=== PATIENT | female | born 1955 | race Caucasian/White ===

== ENCOUNTER 2016-07-04 18:11 | Observation (INO) | payer BC, MEDICARE ==
[2016-07-04 19:57] LABS: HEMATOCRIT 29.3 % (36.0-47.0); HEMOGLOBIN 9.6 g/dL (12.0-15.5); HGB HCT DIFFERENCE -0.5; MEAN CORPUSCULAR HEMOGLOBIN 24.8 pg (27.0-33.4); MEAN CORPUSCULAR HGB CONC 32.7 g/dL (32.0-36.0); MEAN CORPUSCULAR VOLUME 76 fl (80-97); RED BLOOD COUNT 3.86 10^6/uL (3.72-5.28); RED CELL DISTRIBUTION WIDTH 16.6 % (11.5-14.0); WHITE BLOOD COUNT 5.5 10^3/uL (4.0-10.5)
[2016-07-04] MEDS: HYDROMORPHONE HCL INJ/PF 2 MG/ML AMPULE IV PRN (20:14)
[2016-07-04 20:22] LABS: ALANINE AMINOTRANSFERASE 26 U/L (9-52); ALKALINE PHOSPHATASE 71 U/L (38-126); ANION GAP 6 (5-19); ASPARTATE AMINO TRANSFERASE 23 U/L (14-36); BILIRUBIN,TOTAL 0.4 mg/dL (0.2-1.3); BLOOD UREA NITROGEN 9 mg/dL (7-20); CALCIUM 8.7 mg/dL (8.4-10.2); CARBON DIOXIDE 29 mmol/L (22-30); CHLORIDE 102 mmol/L (98-107); CREATININE RESULT 0.81 mg/dL (0.52-1.25); GLUCOSE 99 mg/dL (75-110); POTASSIUM 3.2 mmol/L (3.6-5.0); SODIUM 136.9 mmol/L (137-145); TOTAL PROTEIN 6.1 g/dL (6.3-8.2)
[2016-07-04] MEDS ORDERED: INFLUENZA ADLT QUAD (36MOS+) 2016-17 VAC 0.5 ML SYR IM PRN (20:48)
[2016-07-04 21:09] LABS: APPEARANCE,URINE CLEAR; BILIRUBIN,URINE NEGATIVE (NEGATIVE); GLUCOSE, URINE NEGATIVE (NEGATIVE); KETONES,URINE NEGATIVE (NEGATIVE); LEUKOCYTE ESTERASE,URINE NEGATIVE (NEGATIVE); NITRITE,URINE NEGATIVE (NEGATIVE); PROTEIN,URINE NEGATIVE (NEGATIVE); URINE SPECIFIC GRAVITY 1.003; UROBILINOGEN,URINE NEGATIVE mg/dL (<2.0)
[2016-07-04] MEDS ORDERED: LORAZEPAM INJ 2 MG/1 ML VIAL ONE (21:57)
[2016-07-04] MEDS ORDERED: LORAZEPAM INJ 2 MG/1 ML VIAL IV ONE (22:00)
[2016-07-05] MEDS: HYDROMORPHONE HCL INJ/PF 2 MG/ML AMPULE IV PRN ×4 (00:14→22:30)
[2016-07-05] MEDS ORDERED: LORAZEPAM INJ 2 MG/1 ML VIAL IV PRN (13:15)
[2016-07-05] MEDS ORDERED: METHADONE HCL 10 MG TABLET PO PRN (14:10)
[2016-07-05] MEDS ORDERED: (PENDING PHARMACY ID) (Losartan/Hydrochlorothiazide [Hyzaar 100-25 Tablet] 1 EACH) PO SCH (14:15)
[2016-07-05] MEDS ORDERED: POTASSIUM CHLORIDE 10 MEQ TABLET.SA PO ONE (15:00)
[2016-07-05] MEDS ORDERED: ESCITALOPRAM OXALATE 10 MG TABLET PO ONE (15:15)
[2016-07-05] MEDS ORDERED: HYDROCHLOROTHIAZIDE 25 MG TABLET PO ONE (15:15)
[2016-07-05] MEDS ORDERED: LANSOPRAZOLE 30 MG TAB.RAP.DR PO ONE (15:15)
[2016-07-05] MEDS ORDERED: LOSARTAN POTASSIUM 50 MG TABLET PO ONE (15:15)
--- NOTE | 2016-07-05 17:02 | PDOC H&P ---
History of Present Illness Admission Date/PCP: 07/04/16 18:11 CHRISTY JONES MD History of Present Illness: SUDHIR ROBERTSON is a 61 year old female, she came to the office because of symptoms of cervical and lumbar radiculopathy. She has symptoms of numbness, tingling and loss of strength of the upper extremities, more so on the right side. She has history of cervical spine disease,She is status post disc laminectomies. MRI of the cervical spine was done it showed mild cord compression at C3-C4 and C5-C6. MRI of the lumbar spine was done it showed moderate to severe spinal stenosis at L4-L5 Past Medical History Cardiac Medical History: Reports: Myocardial Infarction, Hyperlipidema, Hypertension Pulmonary Medical History: Reports: Asthma, Bronchitis, Pneumonia Musculoskeltal Medical History: Reports: Arthritis Psychiatric Medical History: Reports: Depression Past Surgical History Past Surgical History: Reports: Appendectomy, Gastric Bypass Surgery, Mastectomy , Orthopedic Surgery - cervical laminectomy, Tonsillectomy Social History Smoking Status: Never Smoker Frequency of Alcohol Use: Occasional Hx Recreational Drug Use: No Drugs: None Hx Prescription Drug Abuse: No Family History Family History: Reviewed & Not Pertinent, Malignancy - Mother had breast cancer and is from the disease Parental Family History Reviewed: Yes Children Family History Reviewed: Yes Sibling(s) Family History Reviewed.: Yes Medication/Allergy Home Medications: Atorvastatin Calcium [Lipitor 10 mg Tablet] 10 mg PO QHS 07/04/16 Escitalopram Oxalate [Lexapro] 20 mg PO DAILY 07/04/16 Esomeprazole Magnesium [Nexium] 40 mg PO DAILY 07/04/16 Losartan/Hydrochlorothiazide [Hyzaar 100-25 Tablet] 1 each PO DAILY 07/04/16 Methadone HCl [Dolophine 10 Mg Tablet] 10 mg PO Q4HP PRN 07/04/16 Oxycodone HCl [Oxy-Ir 5 mg Tablet] 20 mg PO Q4HP PRN 07/04/16 Allergies/Adverse Reactions: No Known Allergies Allergy (Verified 06/01/14 15:16) Review of Systems Constitutional: ABSENT: chills, fever(s), headache(s), weight gain, weight loss Eyes: ABSENT: visual disturbances Ears: ABSENT: hearing changes Cardiovascular: ABSENT: chest pain, dyspnea on exertion, edema, orthropnea, palpitations Respiratory: ABSENT: cough, hemoptysis Gastrointestinal: ABSENT: abdominal pain, constipation, diarrhea, hematemesis, hematochezia, nausea, vomiting Genitourinary: ABSENT: dysuria, hematuria Musculoskeletal: ABSENT: joint swelling Integumentary: ABSENT: rash, wounds Neurological: PRESENT: numbness, paresthesias, tingling, weakness Psychiatric: ABSENT: anxiety, depression, homidical ideation, suicidal ideation Endocrine: ABSENT: cold intolerance, heat intolerance, menstrual abnormalities, polydipsia, polyuria Hematologic/Lymphatic: ABSENT: easy bleeding, easy bruising, lymphadenopathy Physical Exam Vital Signs: Temp Pulse Resp BP Pulse Ox 98.4 F 68 20 136/77 H 98 07/05/16 12:09 07/05/16 14:00 07/05/16 12:09 07/05/16 12:09 07/05/16 12:09 Intake & Output 07/04/16 07/05/16 07/06/16 06:59 06:59 06:59 Intake Total 480 Balance 480 Weight 64.4 kg General appearance: PRESENT: no acute distress, well-developed, well-nourished Head exam: PRESENT: atraumatic, normocephalic Eye exam: PRESENT: conjunctiva pink, EOMI, PERRLA Ear exam: PRESENT: normal external ear exam Mouth exam: PRESENT: moist, tongue midline Neck exam: PRESENT: full ROM Respiratory exam: PRESENT: clear to auscultation rai Cardiovascular exam: PRESENT: RRR, +S1, +S2 Pulses: PRESENT: normal dorsalis pedis pul, +2 pedal pulses bilateral Vascular exam: PRESENT: normal capillary refill GI/Abdominal exam: PRESENT: normal bowel sounds, soft Rectal exam: PRESENT: deferred Neurological exam: PRESENT: alert, awake, oriented to person, oriented to place , oriented to time, oriented to situation, CN II-XII grossly intact Psychiatric exam: PRESENT: appropriate affect, normal mood Skin exam: PRESENT: dry, intact, warm Results Laboratory Results: 07/04/16 19:35 07/04/16 19:35 07/04/16 07/04/16 07/04/16 19:35 19:35 20:52 WBC 5.5 RBC 3.86 Hgb 9.6 L Hct 29.3 L MCV 76 L MCH 24.8 L MCHC 32.7 RDW 16.6 H Plt Count 201 Sodium 136.9 L Potassium 3.2 L Chloride 102 Carbon Dioxide 29 Anion Gap 6 BUN 9 Creatinine 0.81 Est GFR ( Amer) > 60 Est GFR (Non-Af Amer) > 60 Glucose 99 Calcium 8.7 Total Bilirubin 0.4 AST 23 ALT 26 Alkaline Phosphatase 71 Total Protein 6.1 L Albumin 3.0 L Urine Color COLORLESS Urine Appearance CLEAR Urine pH 9.0 Ur Specific [place] 1.003 Urine Protein NEGATIVE Urine Glucose (UA) NEGATIVE Urine Ketones NEGATIVE Urine Blood NEGATIVE Urine Nitrite NEGATIVE Ur Leukocyte Esterase NEGATIVE Urine WBC (Auto) 0 Assessment & Plan - Diagnosis (1) Myelopathy of cervical spinal cord with cervical radiculopathy Is this a current diagnosis for this admission?: YesPlan: She has mild spinal cord compression
[2016-07-05] MEDS: OXYCODONE HCL IR 5 MG TABLET PO PRN (20:26)
[2016-07-05] MEDS: ATORVASTATIN CALCIUM 10 MG TABLET PO SCH (22:28)
[2016-07-06] MEDS: OXYCODONE HCL IR 5 MG TABLET PO PRN (01:33)
[2016-07-06] MEDS: HYDROMORPHONE HCL INJ/PF 2 MG/ML AMPULE IV PRN ×4 (03:54→21:49)
[2016-07-06] MEDS: HYDROCHLOROTHIAZIDE 25 MG TABLET PO SCH (09:08)
[2016-07-06] MEDS: LANSOPRAZOLE 30 MG TAB.RAP.DR PO SCH (09:08)
[2016-07-06] MEDS: LOSARTAN POTASSIUM 50 MG TABLET PO SCH (09:10)
[2016-07-06] MEDS: ESCITALOPRAM OXALATE 10 MG TABLET PO SCH (09:10)
--- NOTE | 2016-07-06 14:47 | PDOC DISCHARGE SUMMARY ---
General - Admit/Disc Date/PCP Admission Date/Primary Care Provider: 07/04/16 18:11 CHRISTY JONES MD Discharge Date: 07/06/16 - Discharge Diagnosis (1) Myelopathy of cervical spinal cord with cervical radiculopathy Is this a current diagnosis for this admission?: Yes - Additional Information Discharge Diet: As Tolerated Discharge Activity: Activity As Tolerated Home Medications: RX: Atorvastatin Calcium [Lipitor 10 mg Tablet] 10 mg PO QHS 07/04/16 RX: Escitalopram Oxalate [Lexapro] 20 mg PO DAILY 07/04/16 RX: Esomeprazole Magnesium [Nexium] 40 mg PO DAILY 07/04/16 RX: Losartan/Hydrochlorothiazide [Hyzaar 100-25 Tablet] 1 each PO DAILY RX: Methadone HCl [Dolophine 10 mg Tablet] 10 mg PO Q4HP PRN 07/04/16 RX: Oxycodone HCl [Oxy-Ir 5 mg Tablet] 20 mg PO Q4HP PRN 07/04/16 History of Present Illness History of Present Illness: SUDHIR ROBERTSON is a 61 year old female, she came to the office because of symptoms of cervical and lumbar radiculopathy. She has symptoms of numbness, tingling and loss of strength of the upper extremities, more so on the right side. She has history of cervical spine disease,She is status post disc laminectomies. MRI of the cervical spine was done it showed mild cord compression at C3-C4 and C5-C6. MRI of the lumbar spine was done it showed moderate to severe spinal stenosis at L4-L5 Hospital Course Hospital Course: Patient was admitted for observation because of cervical radiculopathy with mild myelopathy, she was treated with pain medication and a dose of Solu-Medrol Physical Exam Vital Signs: Temp Pulse Resp BP Pulse Ox 98.0 F 67 20 111/51 L 100 07/06/16 11:42 07/06/16 11:42 07/06/16 11:42 07/06/16 11:42 07/06/16 11:42 Intake & Output 07/05/16 07/06/16 07/07/16 06:59 06:59 06:59 Intake Total 480 1671 222 Output Total 1100 500 Balance 480 571 -278 Weight 64.4 kg 64.3 kg General appearance: PRESENT: no acute distress, well-developed, well-nourished Head exam: PRESENT: atraumatic, normocephalic Eye exam: PRESENT: conjunctiva pink, EOMI, PERRLA Ear exam: PRESENT: normal external ear exam Mouth exam: PRESENT: moist, tongue midline Neck exam: PRESENT: full ROM Cardiovascular exam: PRESENT: RRR, +S1, +S2 Pulses: PRESENT: normal dorsalis pedis pul, +2 pedal pulses bilateral Vascular exam: PRESENT: normal capillary refill GI/Abdominal exam: PRESENT: normal bowel sounds, soft Rectal exam: PRESENT: deferred Neurological exam: PRESENT: alert, awake, oriented to person, oriented to place , oriented to time, oriented to situation, CN II-XII grossly intact Psychiatric exam: PRESENT: appropriate affect, normal mood Skin exam: PRESENT: dry, intact, warm Results Laboratory Results: 07/04/16 19:35 07/04/16 19:35 Impressions: Cervical Spine MRI 07/05/16 00:00 IMPRESSION: 1. Considerably limited study as above, limited diagnostic information results. There may be some mild cord compression at C3-4 and C5-6. Lumbar Spine MRI 07/05/16 00:00 IMPRESSION: 1. Multilevel spondylosis. Degenerative listhesis at L4-5 with associated spinal stenosis as above, moderate to marked. Similar appearance to prior.
[2016-07-06] MEDS ORDERED: METHYLPREDNISOLONE INJ 125 MG/2 ML SDV IV ONE (15:00)
[2016-07-06] MEDS: CYCLOBENZAPRINE HCL 10 MG TABLET PO PRN (16:53)
[2016-07-06] MEDS: ATORVASTATIN CALCIUM 10 MG TABLET PO SCH (21:24)
[2016-07-07] MEDS: HYDROMORPHONE HCL INJ/PF 2 MG/ML AMPULE IV PRN (03:58)
[2016-07-07] MEDS: LOSARTAN POTASSIUM 50 MG TABLET PO SCH (10:29)
[2016-07-07] MEDS: ESCITALOPRAM OXALATE 10 MG TABLET PO SCH (10:29)
[2016-07-07] MEDS: CYCLOBENZAPRINE HCL 10 MG TABLET PO PRN (10:29)
[2016-07-07] MEDS: HYDROCHLOROTHIAZIDE 25 MG TABLET PO SCH (10:29)
[2016-07-07] MEDS: LANSOPRAZOLE 30 MG TAB.RAP.DR PO SCH (10:29)
[2016-07-07 10:56] VITALS: BP 145/78
== END 2016-07-07 12:01 | disposition home or self-care (01) ==
LOC: 3W 18:11
PROVIDERS: ADMIT Internal Medicine; ATTEND Internal Medicine
DX: M50.021 Cervical disc disorder at C4-C5 level with myelopathy (principal); I10 Essential (primary) hypertension; E78.5 Hyperlipidemia, unspecified; I25.2 Old myocardial infarction; J45.909 Unspecified asthma, uncomplicated; M19.90 Unspecified osteoarthritis, unspecified site; F32.9 Major depressive disorder, single episode, unspecified
CPT/HCPCS: 36415; 85027; 80076; 80048; 81001; 72141; 72148; G0378 ×4; J2930; J1170 ×4; J2060

== ENCOUNTER → 2016-10-20 | Outpatient (CLI) | payer BC, MEDICARE ==
--- NOTE | 2016-10-20 15:07 | RADIOLOGY REPORT (SQ) ---
EXAM DESCRIPTION: FOREARM LEFT COMPLETED DATE/TIME: 10/20/2016 2:54 pm REASON FOR STUDY: PAIN IN LEFT FOREARM M79.632 PAIN IN LEFT FOREARM COMPARISON: None. NUMBER OF VIEWS: Two views. TECHNIQUE: Two radiographic images acquired of the left forearm, including elbow and wrist in at [address] one projection. LIMITATIONS: None. FINDINGS: MINERALIZATION: Normal. BONES: There is a nondisplaced distal radius fracture. SOFT TISSUES: There is diffuse soft tissue edema. OTHER: No other significant finding. IMPRESSION: Nondisplaced distal radius fracture and diffuse soft tissue edema. TECHNICAL DOCUMENTATION: JOB ID: [id number] [employer]- All Rights Reserved
== END ==
LOC: OD 14:36
PROVIDERS: ATTEND Internal Medicine
DX: S52.502A Unspecified fracture of the lower end of left radius, initial encounter for closed fracture (principal); X58.XXXA Exposure to other specified factors, initial encounter

== ENCOUNTER 2017-09-22 18:19 | Inpatient (IN) | payer BC, MEDICARE ==
--- NOTE | 2017-09-22 18:48 | RADIOLOGY REPORT (SQ) ---
EXAM DESCRIPTION: CHEST 2 VIEWS COMPLETED DATE/TIME: 09/22/2017 6:40 pm REASON FOR STUDY: weak/gi bleed COMPARISON: 09/11/2015 EXAM PARAMETERS: NUMBER OF VIEWS: two views TECHNIQUE: Digital Frontal and Lateral radiographic views of the chest acquired. RADIATION DOSE: NA LIMITATIONS: none FINDINGS: LUNGS AND PLEURA: No opacities, masses or pneumothorax. No pleural effusion. MEDIASTINUM AND HILAR STRUCTURES: No masses or contour abnormalities. HEART AND VASCULAR STRUCTURES: Heart normal size. No evidence for failure. BONES: No acute findings. HARDWARE: None in the chest. OTHER: No other significant finding. IMPRESSION: NO ACUTE RADIOGRAPHIC FINDING IN THE CHEST. TECHNICAL DOCUMENTATION: JOB ID: [id number] [employer]- All Rights Reserved Reading location - IP/workstation name: [email or web address]
[2017-09-22 20:31] LABS: ABSOLUTE BASOPHILS # (AUTO) 0.1 10^3/uL (0.0-0.2); ABSOLUTE EOSINOPHILS # (AUTO) 0.3 10^3/uL (0.0-0.6); ABSOLUTE LYMPHOCYTES (AUTO) 1.4 10^3/uL (0.5-4.7); ABSOLUTE MONOCYTES (AUTO) 0.7 10^3/uL (0.1-1.4); ABSOLUTE NEUT (AUTO) 7.5 10^3/uL (1.7-8.2); BASOPHILS % (AUTO) 0.9 % (0-2); EOSINOPHILS % (AUTO) 2.6 % (0-6); HEMATOCRIT 25.6 % (36.0-47.0); LYMPHOCYTES % (AUTO) 13.9 % (13-45); MEAN CORPUSCULAR HGB CONC 31.1 g/dL (32.0-36.0); MEAN CORPUSCULAR VOLUME 68 fl (80-97); MONOCYTES % (AUTO) 7.2 % (3-13); PLATELET COUNT 375 10^3/uL (150-450); RED BLOOD COUNT 3.79 10^6/uL (3.72-5.28); RED CELL DISTRIBUTION WIDTH 18.2 % (11.5-14.0); SEGMENTED NEUTROPHILS % (AUTO) 75.4 % (42-78); TOTAL CELLS COUNTED % (AUTO) 100 %; WHITE BLOOD COUNT 9.9 10^3/uL (4.0-10.5)
[2017-09-22 20:49] LABS: ALANINE AMINOTRANSFERASE 30 U/L (9-52); ALBUMIN 3.9 g/dL (3.5-5.0); ALKALINE PHOSPHATASE 85 U/L (38-126); ANION GAP 12 (5-19); ASPARTATE AMINO TRANSFERASE 26 U/L (14-36); BILIRUBIN,DIRECT 0.3 mg/dL (0.0-0.4); BILIRUBIN,TOTAL 0.4 mg/dL (0.2-1.3); BLOOD UREA NITROGEN 25 mg/dL (7-20); CALCIUM 9.1 mg/dL (8.4-10.2); CARBON DIOXIDE 26 mmol/L (22-30); CHLORIDE 103 mmol/L (98-107); GLUCOSE 111 mg/dL (75-110); SODIUM 140.7 mmol/L (137-145)
[2017-09-22] MEDS ORDERED: NORMAL SALINE 1000 ML 1,000 ML IV PRN (21:02)
[2017-09-22 22:06] LABS: ABSOLUTE EOSINOPHILS # (AUTO) 0.2 10^3/uL (0.0-0.6); ABSOLUTE LYMPHOCYTES (AUTO) 1.6 10^3/uL (0.5-4.7); ABSOLUTE NEUT (AUTO) 6.4 10^3/uL (1.7-8.2); BASOPHILS % (AUTO) 0.5 % (0-2); EOSINOPHILS % (AUTO) 2.2 % (0-6); HEMATOCRIT 23.4 % (36.0-47.0); LYMPHOCYTES % (AUTO) 17.6 % (13-45); MEAN CORPUSCULAR VOLUME 68 fl (80-97); MONOCYTES % (AUTO) 10.5 % (3-13); PLATELET COUNT 353 10^3/uL (150-450); RED BLOOD COUNT 3.45 10^6/uL (3.72-5.28); SEGMENTED NEUTROPHILS % (AUTO) 69.2 % (42-78); TOTAL CELLS COUNTED % (AUTO) 100 %; WHITE BLOOD COUNT 9.3 10^3/uL (4.0-10.5)
[2017-09-22 22:10] LABS: HEMOGLOBIN 7.2 g/dL (12.0-15.5)
[2017-09-22] MEDS ORDERED: OXYCODONE HCL IR 5 MG TABLET PO PRN (22:52)
[2017-09-23] MEDS ORDERED: HYDROMORPHONE HCL INJ/PF 2 MG/ML AMPULE ONE (01:25)
[2017-09-23] MEDS ORDERED: HYDROMORPHONE HCL INJ/PF 2 MG/ML AMPULE IV PRN (01:29)
[2017-09-23] MEDS: PANTOPRAZOLE SODIUM 40 MG VIAL IV SCH ×2 (01:45→21:40)
[2017-09-23] MEDS: METHADONE HCL 10 MG TABLET PO SCH ×3 (03:03→17:02)
[2017-09-23] MEDS ORDERED: NORMAL SALINE 250 ML IV PRN ×2 (08:30)
[2017-09-23] MEDS: HYDROCHLOROTHIAZIDE 25 MG TABLET PO SCH (10:37)
[2017-09-23] MEDS: ESCITALOPRAM OXALATE 10 MG TABLET PO SCH (10:40)
[2017-09-23] MEDS: LOSARTAN POTASSIUM 50 MG TABLET PO SCH (10:40)
[2017-09-23 13:06] LABS: APPEARANCE,URINE CLEAR; BILIRUBIN,URINE NEGATIVE (NEGATIVE); COLOR,URINE YELLOW; GLUCOSE, URINE NEGATIVE (NEGATIVE); KETONES,URINE NEGATIVE (NEGATIVE); LEUKOCYTE ESTERASE,URINE NEGATIVE (NEGATIVE); NITRITE,URINE NEGATIVE (NEGATIVE); PROTEIN,URINE NEGATIVE (NEGATIVE); URINE SPECIFIC GRAVITY 1.016; UROBILINOGEN,URINE NEGATIVE mg/dL (<2.0)
[2017-09-23] MEDS ORDERED: METHADONE HCL 10 MG TABLET PO ONE (15:15)
[2017-09-23] MEDS: HYDROMORPHONE HCL INJ/PF 2 MG/ML AMPULE IV PRN ×2 (15:37→19:41)
--- NOTE | 2017-09-23 16:07 | Physician Advisory Note ---
Physician Advisor ProgressNote .: [facility] medical record for this patient. Physician Advisor Statement: Please consider documenting, if you agree: 1. "Acute/chronic/Acute on Chronic GI Bleeding, suspect due to " 2. "Anemia of acute blood loss due to , baseline Hgb =____" [Hgb was 9.6 on 07/04/2016] 3. Medical necessity: If pt not just here for transfusion & d/c, but needs further workup/management, please document attending concerns - may indicate appropriate for transition to Inpatient status. (I'll plan to recheck chart tomorrow for status determination.) Thanks! CK
--- NOTE | 2017-09-23 17:28 | PDOC H&P ---
History of Present Illness Admission Date/PCP: 09/22/17 19:38 CHRISTY JONES MD History of Present Illness: SUDHIR ROBERTSON is a 62 year old female, she has a history of gastric bypass, history of upper GI bleed from anastomotic ulcer, she came to the office on Thursday last week for routine follow-up, blood was drawn, the hemogram came back with hemoglobin of 7.4. She was called from home to be admitted to the hospital for blood transfusion and also for upper GI endoscopy, she also have chronic pain syndrome from severe cervical disc disease, she is status post cervical laminectomy, she is very particular about the radiculopathy she is experiencing, she follows with pain management and she has had multiple injections, epidurals, she has maximized that aspect of therapy, she is also on oral opioids oxycodone and methadone and despite all these she continues to complain of pain. I spoke to the pain specialist, he stated that patient also uses NSAIDs which also raises the risk of GI bleed, the combination of NSAID and epidural injection with steroid increases the risk of GI bleed. She was going to leave AGAINST MEDICAL ADVICE because she was not getting what she perceived as inadequate Dilaudid though she is on oral opioid and as needed Dilaudid.Patient was initially brought in for observation this was transitioned to inpatient care because of the complex history of this patient, she has a history of chronic diastolic heart failure, history of bleeding from anastomotic ulcer from gastric bypass surgery, patient is showing symptoms of instability clinically, she is also requiring frequent pain medication Dilaudid , she will need to be transfused with packed red blood cells, she will need EGD and colonoscopy after she stabilized Past Medical History Cardiac Medical History: Reports: Hyperlipidema, Hypertension Pulmonary Medical History: Reports: Asthma, Bronchitis, Pneumonia GI Medical History: Reports: Gastroesophageal Reflux Disease, Other - History of GI bleed from anastomotic ulcer Musculoskeltal Medical History: Reports: Arthritis, Other - Chronic pain syndrome from cervical disc disease, lumbar disc disease Psychiatric Medical History: Reports: Depression Past Surgical History Past Surgical History: Reports: Appendectomy, Gastric Bypass Surgery, Mastectomy , Orthopedic Surgery - cervical laminectomy, Tonsillectomy Social History Smoking Status: Never Smoker Frequency of Alcohol Use: Occasional Hx Recreational Drug Use: No Drugs: None Hx Prescription Drug Abuse: No Family History Family History: Reviewed & Not Pertinent, Malignancy - Mother had breast cancer and is from the disease Parental Family History Reviewed: Yes Children Family History Reviewed: Yes Sibling(s) Family History Reviewed.: Yes Medication/Allergy Home Medications: Atorvastatin Calcium [Lipitor 80 mg Tablet] 80 mg PO DAILY 09/22/17 Escitalopram Oxalate [Lexapro] 20 mg PO DAILY 09/22/17 Esomeprazole Magnesium [Nexium] 40 mg PO DAILY 09/22/17 Losartan/Hydrochlorothiazide [Losartan-Hctz 100-25 mg Tab] 1 tab PO DAILY Methadone HCl [Dolophine 10 mg Tablet] 10 mg PO Q6 09/22/17 Oxycodone HCl 20 mg PO Q6HP PRN 09/22/17 Allergies/Adverse Reactions: No Known Allergies Allergy (Verified 10/23/16 13:12) Review of Systems Constitutional: PRESENT: fatigue, other Eyes: ABSENT: visual disturbances Ears: ABSENT: hearing changes Cardiovascular: ABSENT: chest pain, dyspnea on exertion, edema, orthropnea, palpitations Respiratory: ABSENT: cough, hemoptysis Gastrointestinal: PRESENT: abdominal pain, melena. ABSENT: constipation, diarrhea, hematemesis, hematochezia, nausea, vomiting Genitourinary: ABSENT: dysuria, hematuria Musculoskeletal: PRESENT: back pain. ABSENT: joint swelling Integumentary: ABSENT: rash, wounds Neurological: ABSENT: abnormal gait, abnormal speech, confusion, dizziness, focal weakness, syncope Psychiatric: ABSENT: anxiety, depression, homidical ideation, suicidal ideation Endocrine: ABSENT: cold intolerance, heat intolerance, menstrual abnormalities, polydipsia, polyuria Hematologic/Lymphatic: ABSENT: easy bleeding, easy bruising, lymphadenopathy Physical Exam Vital Signs: Temp Pulse Resp BP Pulse Ox 98.5 F 74 16 115/58 L 100 09/23/17 15:14 09/23/17 15:14 09/23/17 15:14 09/23/17 15:14 09/23/17 15:14 Intake & Output 09/22/17 09/23/17 09/24/17 06:59 06:59 06:59 Intake Total 730 750 Output Total 500 Balance 230 750 Weight 59.3 kg General appearance: PRESENT: mild distress Head exam: PRESENT: atraumatic, normocephalic Eye exam: PRESENT: conjunctiva pale, EOMI, PERRLA Ear exam: PRESENT: normal external ear exam Mouth exam: PRESENT: moist, tongue midline Neck exam: PRESENT: full ROM Respiratory exam: PRESENT: clear to auscultation rai Cardiovascular exam: PRESENT: RRR, +S1, +S2 Vascular exam: PRESENT: normal capillary refill GI/Abdominal exam: PRESENT: normal bowel sounds, soft Rectal exam: PRESENT: deferred Neurological exam: PRESENT: alert Psychiatric exam: PRESENT: appropriate affect, normal mood Skin exam: PRESENT: dry, intact, warm Results Laboratory Results: 09/22/17 21:45 09/22/17 20:10 09/22/17 09/22/17 09/22/17 20:10 20:10 20:10 WBC 9.9 RBC 3.79 Hgb 8.0 L Hct 25.6 L MCV 68 L MCH 21.0 L MCHC 31.1 L RDW 18.2 H Plt Count 375 Seg Neutrophils % 75.4 Lymphocytes % 13.9 Monocytes % 7.2 Eosinophils % 2.6 Basophils % 0.9 Absolute Neutrophils 7.5 Absolute Lymphocytes 1.4 Absolute Monocytes 0.7 Absolute Eosinophils 0.3 Absolute Basophils 0.1 Sodium 140.7 Potassium 4.0 Chloride 103 Carbon Dioxide 26 Anion Gap 12 BUN 25 H Creatinine 1.01 Est GFR ( Amer) > 60 Est GFR (Non-Af Amer) 55 L Glucose 111 H Calcium 9.1 Total Bilirubin 0.4 AST 26 ALT 30 Alkaline Phosphatase 85 Total Protein 7.0 Albumin 3.9 Urine Color Urine Appearance Urine pH Ur Specific [place] Urine Protein Urine Glucose (UA) Urine Ketones Urine Blood Urine Nitrite Ur Leukocyte Esterase Urine WBC (Auto) Blood Type A POSITIVE Antibody Screen NEGATIVE 09/22/17 09/23/17 21:45 12:35 WBC 9.3 RBC 3.45 L Hgb 7.2 L Hct 23.4 L MCV 68 L MCH 21.0 L MCHC 31.0 L RDW 18.0 H Plt Count 353 Seg Neutrophils % 69.2 Lymphocytes % 17.6 Monocytes % 10.5 Eosinophils % 2.2 Basophils % 0.5 Absolute Neutrophils 6.4 Absolute Lymphocytes 1.6 Absolute Monocytes 1.0 Absolute Eosinophils 0.2 Absolute Basophils 0.0 Sodium Potassium Chloride Carbon Dioxide Anion Gap BUN Creatinine Est GFR ( Amer) Est GFR (Non-Af Amer) Glucose Calcium Total Bilirubin AST ALT Alkaline Phosphatase Total Protein Albumin Urine Color YELLOW Urine Appearance CLEAR Urine pH 5.0 Ur Specific [place] 1.016 Urine Protein NEGATIVE Urine Glucose (UA) NEGATIVE Urine Ketones NEGATIVE Urine Blood NEGATIVE Urine Nitrite NEGATIVE Ur Leukocyte Esterase NEGATIVE Urine WBC (Auto) 0 Blood Type Antibody Screen Impressions: Chest X-Ray 09/22/17 00:00 IMPRESSION: NO ACUTE RADIOGRAPHIC FINDING IN THE CHEST. Assessment & Plan - Diagnosis (1) Gastrointestinal hemorrhage Is this a current diagnosis for this admission?: Yes Plan: She is admitted for management, she be transfused with packed red blood cells (2) Anemia Qualifiers: Anemia type: iron deficiency Iron deficiency anemia type: chronic blood loss Qualified Code(s): D50.0 - Iron deficiency anemia secondary to blood loss (chronic) (3) Cervical radiculopathy Is this a current diagnosis for this admission?: Yes (4) Chronic diastolic (congestive) heart failure Is this a current diagnosis for this admission?: Yes
--- NOTE | 2017-09-23 17:38 | PDOC CONSULTATION ---
Consultation Consult Date: 09/23/17 Attending physician:: CHANELL CERRATO Consult reason:: GI bleeding History of Present Illness Admission Date/PCP: 09/22/17 19:38 CHRISTY JONES MD History of Present Illness: SUDHIR ROBERTSON is a 62 year old female Patient has been seen in the past in my office. Had previously been scheduled for EGD but did not come for her procedure. She was having a physical at her primary care's office. Noted to be anemic. She she has no other symptoms of fatigue. There was an occasion where she also noted black stools. She is currently getting blood transfusion. Does state that she is getting better. I will will need repeat GI workup to involve both EGD and colonoscopy. She was not well sedated during her last procedure. She will need propofol sedation. She is agreeable to proceed. She denies any nausea vomiting. There is no rectal bleeding. Past Medical History Cardiac Medical History: Reports: Myocardial Infarction, Hyperlipidema, Hypertension Pulmonary Medical History: Reports: Asthma, Bronchitis, Pneumonia GI Medical History: Reports: Gastroesophageal Reflux Disease, Other - History of GI bleed from anastomotic ulcer Musculoskeltal Medical History: Reports: Arthritis, Other - Chronic pain syndrome from cervical disc disease, lumbar disc disease Psychiatric Medical History: Reports: Depression Past Surgical History Past Surgical History: Reports: Appendectomy, Gastric Bypass Surgery, Mastectomy , Orthopedic Surgery - cervical laminectomy, Tonsillectomy Denies: Hysterectomy, Tubal Ligation Social History Smoking Status: Never Smoker Frequency of Alcohol Use: Occasional Hx Recreational Drug Use: No Drugs: None Hx Prescription Drug Abuse: No Family History Family History: Reviewed & Not Pertinent, Malignancy - Mother had breast cancer and is from the disease Parental Family History Reviewed: Yes Children Family History Reviewed: Unknown Sibling(s) Family History Reviewed.: Unknown Medication/Allergy Home Medications: Atorvastatin Calcium [Lipitor 80 mg Tablet] 80 mg PO DAILY 09/22/17 Escitalopram Oxalate [Lexapro] 20 mg PO DAILY 09/22/17 Esomeprazole Magnesium [Nexium] 40 mg PO DAILY 09/22/17 Losartan/Hydrochlorothiazide [Losartan-Hctz 100-25 mg Tab] 1 tab PO DAILY Methadone HCl [Dolophine 10 mg Tablet] 10 mg PO Q6 09/22/17 Oxycodone HCl 20 mg PO Q6HP PRN 09/22/17 Allergies/Adverse Reactions: No Known Allergies Allergy (Verified 10/23/16 13:12) Review of Systems Constitutional: PRESENT: weakness. ABSENT: fever(s), headache(s), night sweats Eyes: ABSENT: visual disturbances Ears: ABSENT: hearing changes Nose, Mouth, and Throat: ABSENT: mouth pain, sore throat Cardiovascular: ABSENT: edema, orthropnea, palpitations Respiratory: ABSENT: dyspnea, hemoptysis Gastrointestinal: PRESENT: melena. ABSENT: abdominal pain, diarrhea, hematochezia, nausea, vomiting Genitourinary: ABSENT: dysuria, hematuria Musculoskeletal: ABSENT: joint swelling Neurological: ABSENT: syncope, tingling, tremor(s), vertigo Endocrine: ABSENT: polydipsia, polyphagia, polyuria Hematologic/Lymphatic: ABSENT: easy bruising Physical Exam Vital Signs: Temp Pulse Resp BP Pulse Ox 98.2 F 69 18 127/66 H 99 09/23/17 17:10 09/23/17 17:10 09/23/17 17:10 09/23/17 17:10 09/23/17 17:10 Intake & Output 09/22/17 09/23/17 09/24/17 06:59 06:59 06:59 Intake Total 730 750 Output Total 500 Balance 230 750 Weight 59.3 kg General appearance: PRESENT: no acute distress, well-developed, well-nourished Head exam: PRESENT: atraumatic, normocephalic Eye exam: PRESENT: EOMI, PERRLA. ABSENT: scleral icterus Mouth exam: PRESENT: moist, neck supple Throat exam: ABSENT: tonsillar exudate, tonsillogmegaly Neck exam: ABSENT: meningismus, tenderness, thyromegaly Cardiovascular exam: PRESENT: RRR, +S1, +S2 GI/Abdominal exam: PRESENT: soft. ABSENT: rebound, rigid, tenderness Extremities exam: ABSENT: joint swelling Musculoskeletal exam: PRESENT: full ROM Neurological exam: PRESENT: alert, awake, oriented to time, oriented to situation, CN II-XII grossly intact Psychiatric exam: PRESENT: appropriate affect Focused psych exam: ABSENT: restlessness Skin exam: PRESENT: normal color. ABSENT: mottled, pallor, urticaria, vesicles Results Laboratory Results: 09/22/17 21:45 09/22/17 20:10 0509/22/17 09/22/17 20:10 20:10 20:10 WBC 9.9 RBC 3.79 Hgb 8.0 L Hct 25.6 L MCV 68 L MCH 21.0 L MCHC 31.1 L RDW 18.2 H Plt Count 375 Seg Neutrophils % 75.4 Lymphocytes % 13.9 Monocytes % 7.2 Eosinophils % 2.6 Basophils % 0.9 Absolute Neutrophils 7.5 Absolute Lymphocytes 1.4 Absolute Monocytes 0.7 Absolute Eosinophils 0.3 Absolute Basophils 0.1 Sodium 140.7 Potassium 4.0 Chloride 103 Carbon Dioxide 26 Anion Gap 12 BUN 25 H Creatinine 1.01 Est GFR ( Amer) > 60 Est GFR (Non-Af Amer) 55 L Glucose 111 H Calcium 9.1 Total Bilirubin 0.4 AST 26 ALT 30 Alkaline Phosphatase 85 Total Protein 7.0 Albumin 3.9 Urine Color Urine Appearance Urine pH Ur Specific [place] Urine Protein Urine Glucose (UA) Urine Ketones Urine Blood Urine Nitrite Ur Leukocyte Esterase Urine WBC (Auto) Blood Type A POSITIVE Antibody Screen NEGATIVE 09/22/17 09/23/17 21:45 12:35 WBC 9.3 RBC 3.45 L Hgb 7.2 L Hct 23.4 L MCV 68 L MCH 21.0 L MCHC 31.0 L RDW 18.0 H Plt Count 353 Seg Neutrophils % 69.2 Lymphocytes % 17.6 Monocytes % 10.5 Eosinophils % 2.2 Basophils % 0.5 Absolute Neutrophils 6.4 Absolute Lymphocytes 1.6 Absolute Monocytes 1.0 Absolute Eosinophils 0.2 Absolute Basophils 0.0 Sodium Potassium Chloride Carbon Dioxide Anion Gap BUN Creatinine Est GFR ( Amer) Est GFR (Non-Af Amer) Glucose Calcium Total Bilirubin AST ALT Alkaline Phosphatase Total Protein Albumin Urine Color YELLOW Urine Appearance CLEAR Urine pH 5.0 Ur Specific [place] 1.016 Urine Protein NEGATIVE Urine Glucose (UA) NEGATIVE Urine Ketones NEGATIVE Urine Blood NEGATIVE Urine Nitrite NEGATIVE Ur Leukocyte Esterase NEGATIVE Urine WBC (Auto) 0 Blood Type Antibody Screen Impressions: Chest X-Ray 09/22/17 00:00 IMPRESSION: NO ACUTE RADIOGRAPHIC FINDING IN THE CHEST. Assessment & Plan - Diagnosis (1) Anemia Qualifiers: Anemia type: iron deficiency Iron deficiency anemia type: chronic blood loss Qualified Code(s): D50.0 - Iron deficiency anemia secondary to blood loss (chronic) Plan: Could be secondary to blood loss. Given her history of melena she could be an upper GI source. She will need both EGD and colonoscopy. She will need propofol sedation. There is evidence alternatives of the procedure including risks of bleeding, perforation requiring surgery are explained to the patient in detail and informed consent was obtained and further recommendations will be based upon findings. Agree with blood transfusion Start her on a PPI Further recommendations to follow - Time Time Spent: 50 to 70 Minutes
[2017-09-23] MEDS: GABAPENTIN 300 MG CAPSULE PO SCH (18:38)
[2017-09-23] MEDS ORDERED: PEG 3350/NA SULF,BICARB,CL/KCL 4000 ML PO PRN (19:00)
--- NOTE | 2017-09-23 20:27 | PDOC PROGRESS REPORT ---
Subjective Progress Note for:: 09/23/17 Subjective:: She was admitted for the management of severe anemia presumed due to upper GI bleed, presently on blood transfusion she also has severe cervical radiculopathy , consultation obtained from GI and also pain specialist Reason For Visit: GI BLEED Physical Exam Vital Signs: Temp Pulse Resp BP Pulse Ox 98.1 F 65 18 123/70 100 09/23/17 19:10 09/23/17 19:10 09/23/17 19:10 09/23/17 19:10 09/23/17 19:10 Intake & Output 09/22/17 09/23/17 09/24/17 06:59 06:59 06:59 Intake Total 730 1350 Output Total 500 Balance 230 1350 Weight 59.3 kg General appearance: PRESENT: no acute distress Eye exam: PRESENT: PERRLA Respiratory exam: PRESENT: clear to auscultation rai Cardiovascular exam: PRESENT: +S1, +S2 GI/Abdominal exam: PRESENT: soft Neurological exam: PRESENT: alert Results Laboratory Results: 09/22/17 21:45 09/22/17 20:10 09/22/17 09/22/17 09/22/17 20:10 20:10 20:10 WBC 9.9 RBC 3.79 Hgb 8.0 L Hct 25.6 L MCV 68 L MCH 21.0 L MCHC 31.1 L RDW 18.2 H Plt Count 375 Seg Neutrophils % 75.4 Lymphocytes % 13.9 Monocytes % 7.2 Eosinophils % 2.6 Basophils % 0.9 Absolute Neutrophils 7.5 Absolute Lymphocytes 1.4 Absolute Monocytes 0.7 Absolute Eosinophils 0.3 Absolute Basophils 0.1 Sodium 140.7 Potassium 4.0 Chloride 103 Carbon Dioxide 26 Anion Gap 12 BUN 25 H Creatinine 1.01 Est GFR ( Amer) > 60 Est GFR (Non-Af Amer) 55 L Glucose 111 H Calcium 9.1 Total Bilirubin 0.4 AST 26 ALT 30 Alkaline Phosphatase 85 Total Protein 7.0 Albumin 3.9 Urine Color Urine Appearance Urine pH Ur Specific [place] Urine Protein Urine Glucose (UA) Urine Ketones Urine Blood Urine Nitrite Ur Leukocyte Esterase Urine WBC (Auto) Blood Type A POSITIVE Antibody Screen NEGATIVE 09/22/17 09/23/17 21:45 12:35 WBC 9.3 RBC 3.45 L Hgb 7.2 L Hct 23.4 L MCV 68 L MCH 21.0 L MCHC 31.0 L RDW 18.0 H Plt Count 353 Seg Neutrophils % 69.2 Lymphocytes % 17.6 Monocytes % 10.5 Eosinophils % 2.2 Basophils % 0.5 Absolute Neutrophils 6.4 Absolute Lymphocytes 1.6 Absolute Monocytes 1.0 Absolute Eosinophils 0.2 Absolute Basophils 0.0 Sodium Potassium Chloride Carbon Dioxide Anion Gap BUN Creatinine Est GFR ( Amer) Est GFR (Non-Af Amer) Glucose Calcium Total Bilirubin AST ALT Alkaline Phosphatase Total Protein Albumin Urine Color YELLOW Urine Appearance CLEAR Urine pH 5.0 Ur Specific [place] 1.016 Urine Protein NEGATIVE Urine Glucose (UA) NEGATIVE Urine Ketones NEGATIVE Urine Blood NEGATIVE Urine Nitrite NEGATIVE Ur Leukocyte Esterase NEGATIVE Urine WBC (Auto) 0 Blood Type Antibody Screen Impressions: Chest X-Ray 09/22/17 00:00 IMPRESSION: NO ACUTE RADIOGRAPHIC FINDING IN THE CHEST. Assessment & Plan - Diagnosis (1) Gastrointestinal hemorrhage Is this a current diagnosis for this admission?: Yes (2) Anemia Qualifiers: Anemia type: iron deficiency Iron deficiency anemia type: chronic blood loss Qualified Code(s): D50.0 - Iron deficiency anemia secondary to blood loss (chronic) Is this a current diagnosis for this admission?: Yes Plan: Continue blood transfusion, she was seen by GI scheduled for upper GI endoscopy and also colonoscopy (3) Cervical radiculopathy Is this a current diagnosis for this admission?: Yes Plan: She was seen by pain specialist, no further oral opioids therapy recommended, gabapentin dose increase suggested, she apparently has been taking this medication on a consistent basis, she took it as needed.
[2017-09-23] MEDS ORDERED: ATORVASTATIN CALCIUM 80 MG TABLET PO SCH (22:00)
[2017-09-24] MEDS: METHADONE HCL 10 MG TABLET PO SCH ×4 (00:01→17:09)
[2017-09-24] MEDS: GABAPENTIN 300 MG CAPSULE PO SCH ×3 (03:28→17:11)
[2017-09-24 07:03] LABS: ABSOLUTE BASOPHILS # (AUTO) 0.1 10^3/uL (0.0-0.2); ABSOLUTE EOSINOPHILS # (AUTO) 0.2 10^3/uL (0.0-0.6); ABSOLUTE LYMPHOCYTES (AUTO) 1.1 10^3/uL (0.5-4.7); ABSOLUTE MONOCYTES (AUTO) 0.7 10^3/uL (0.1-1.4); ABSOLUTE NEUT (AUTO) 4.9 10^3/uL (1.7-8.2); BASOPHILS % (AUTO) 0.8 % (0-2); EOSINOPHILS % (AUTO) 3.3 % (0-6); LYMPHOCYTES % (AUTO) 15.9 % (13-45); MEAN CORPUSCULAR HEMOGLOBIN 22.6 pg (27.0-33.4); MEAN CORPUSCULAR HGB CONC 31.6 g/dL (32.0-36.0); MONOCYTES % (AUTO) 10.3 % (3-13); PLATELET COUNT 313 10^3/uL (150-450); RED BLOOD COUNT 4.47 10^6/uL (3.72-5.28); RED CELL DISTRIBUTION WIDTH 20.6 % (11.5-14.0); SEGMENTED NEUTROPHILS % (AUTO) 69.7 % (42-78); TOTAL CELLS COUNTED % (AUTO) 100 %
[2017-09-24 07:12] LABS: HEMOGLOBIN 10.1 g/dL (12.0-15.5)
[2017-09-24] MEDS: HYDROMORPHONE HCL INJ/PF 2 MG/ML AMPULE IV PRN ×2 (07:44→15:51)
[2017-09-24 07:59] LABS: MEAN CORPUSCULAR VOLUME 72 fl (80-97)
[2017-09-24] MEDS: HYDROCHLOROTHIAZIDE 25 MG TABLET PO SCH (10:38)
[2017-09-24] MEDS: ESCITALOPRAM OXALATE 10 MG TABLET PO SCH (10:38)
[2017-09-24] MEDS: LOSARTAN POTASSIUM 50 MG TABLET PO SCH (10:39)
--- NOTE | 2017-09-24 10:40 | Physician Advisory Note ---
Physician Advisor ProgressNote .: Pursuant to the plan for [facility], I have reviewed the medical record for this patient. Physician Advisor Statement: Please consider documenting, if you agree: 1. ? "chronic diastolic CHF [stage B]"? - 2013 ECHO showed nl EF but borderline asymmetric LVH w/thickening of interatrial septum suggestive of lipomatous hypertrophy without LV outflow obstruction, & "transmitral spectral doppler flow pattern is suggestive of restrictive physiology"; - "chronic diastolic CHF, stage B" is defined as structural heart disease without CHF sx yet ... Status points: 62yo pt w/past gastric bypass & anastomotic ulcer (so could end up needing urgent surgery), using NSAIDS outpt despite risks due to uncontrolled chronic pain/cervical radiculopathy. ECHO in 2013 shows evidence of some structural heart disease, which means more care & monitoring with IVF & transfusions is needed to avoid decompensation. Initial HR 97 but then 70s starting 3.5 hrs later. Initial BP 144/67 (has chronic HTN), then 115/56 that first night (subsequently 130s/70-90 the next day, 09/23). Receiving IVF @100, & IV Pantoprazole, since coming in. Hgb was 11.1 on 09/19/15, 9.6 on 07/04/16, then 8.0 & then 7.2 here this stay. H& P states Hgb 7.4 last Thursday, (+)fatigue. BUN elevated at 25 compared to Cr 1.0, consistent with recent GI blood loss. Reported melena in recent past. Hem ck negative - on AM of 3rd day in hospital. Attending feels GI Bleed is chronic. TRansfusing 2units PRBCs so far, with resultant Hgb up to 10. Needed transfusion prior to endoscopy, due to risks for bleeding during procedures. Now transfusions nearly complete, & NPO for procedures. Needed bowel prep overnight prior to procedures as well, which may be complicated by opioid side effects.. Pt using frequent prn IV Dilaudid, required increase in dose frequency in 1st 24hrs here. Nurse noted pain level 5/5 the first night, "grasping site, facial grimacing". Usually takes methadone q6hrs & oxycodone 20mg po q6hr prn (short-acting tx.s) for pain control, so going NPO for procedures could interfere with adequate pain control. High opioid tolerance, unable to be adequately sedated for previous endoscopy - GI notes 09/23 that she will need propofol sedation for upper & lower GI eval, needs both upper & lower endoscopy. Attending documented on pt & changed to Inpatient status on 09/23 PM at 20:27. This appears appropriate given co-morbid clinical issues. CK
[2017-09-24] MEDS ORDERED: PROPOFOL INJ 200 MG/20 ML VIAL IV ONE (12:18)
[2017-09-24] MEDS ORDERED: DIPHENHYDRAMINE HCL 50 MG/ML VIAL IV PRN (13:48)
[2017-09-24] MEDS ORDERED: PROMETHAZINE HCL INJ 25 MG/1 ML VIAL IV PRN ×2 (13:48)
[2017-09-24] MEDS ORDERED: MORPHINE SULFATE 10 MG/ML INJ IV PRN (13:48)
[2017-09-24] MEDS ORDERED: OXYCODONE-ACETAMINOPHEN 5-325 MG TABLET PO PRN ×2 (13:48)
[2017-09-24] MEDS ORDERED: FENTANYL CITRATE INJ/PF 100 MCG/2 ML AMPUL IV PRN ×3 (13:48)
[2017-09-24] MEDS ORDERED: ONDANSETRON HCL INJ/PF 4 MG/2 ML SDV IV PRN (13:48)
[2017-09-24] MEDS ORDERED: MEPERIDINE HCL/PF INJ 25 MG/1 ML DISP.SYRIN IV PRN (13:48)
--- NOTE | 2017-09-24 14:49 | Operative Report ---
Operative Report DATE OF SURGERY: 09/24/17 Operative Report: The risks, benefits and alternatives of the procedure including risks of bleeding, perforation requiring surgery are explained to the patient in detail and informed consent is obtained. Patient was taken back to the endoscopy suite and placed in the left, lateral decubital position. Timeout was called. Propofol medications administered. A rectal examination is done which did not reveal any masses, tears or fissures. An Olympus videoscope was inserted into the patient's rectum. The scope was then carefully advanced all the way to the cecum. The cecum was identified by the usual anatomical landmarks including the ileocecal valve as well as the appendiceal office. Photodocumentation is obtained. Scope was then sequentially pulled back via the various segments of the colon including the ascending colon, hepatic flexure, transverse colon, splenic flexure, descending colon and finally into the rectosigmoid portions of the colon. Retroflexion maneuvers performed. The risks benefits and alternatives of the procedure explained to the patient in detail and informed consent is obtained.A GIF Olympus video scope was inserted into the patient's mouth and hypopharynx ,the esophagus is identified intubated and insufflated ,the scope was then advanced through the esophagus stomach and duodenum ,retroflexion maneuver is done ,the esophagus stomach and first and second portions of the duodenum examined PREOPERATIVE DIAGNOSIS: Possible GI bleeding, chronic anemia POSTOPERATIVE DIAGNOSIS: Gastric bypass anatomy, mild irritation noted at the anastomosis status post biopsy. No GI bleeding noted. Right side colon biopsy , cecum intubated, no lower GI bleeding. Suspect reason for patient's chronic anemia is that she is not absorbing iron. Would recommend hematology consult for possible iron infusion if needed OPERATION: Colonoscopy with biopsy. EGD with biopsy SURGEON: CHANELL CERRATO ANESTHESIA: LMAC TISSUE REMOVED OR ALTERED: As noted above. COMPLICATIONS: None. ESTIMATED BLOOD LOSS: None. INTRAOPERATIVE FINDINGS: As noted above. PROCEDURE: Patient tolerated procedure well. No immediate postprocedure complications are noted. She sent back to her room in good condition. Resume previous diet, activity level and preprocedure medications. We will wait on biopsy. No active GI bleeding noted. Follow-up as outpatient. Patient has a gastric bypass and her anemia is likely due to non-absorption of oral iron. She will likely need IV iron transfusion with hematology.
[2017-09-24] MEDS ORDERED: METHADONE HCL 10 MG TABLET PO ONE (16:00)
[2017-09-24 18:40] VITALS: BP 152/75
--- NOTE | 2017-09-24 20:07 | PDOC DISCHARGE SUMMARY ---
General - Admit/Disc Date/PCP Admission Date/Primary Care Provider: 09/23/17 20:27 CHRISTY JONES MD Discharge Date: 09/24/17 - Discharge Diagnosis (1) Gastrointestinal hemorrhage Is this a current diagnosis for this admission?: Yes (2) Anemia Is this a current diagnosis for this admission?: Yes (3) Cervical radiculopathy Is this a current diagnosis for this admission?: Yes (4) Chronic diastolic (congestive) heart failure Is this a current diagnosis for this admission?: Yes - Additional Information Resuscitation Status: Full Code Discharge Diet: Regular Discharge Activity: Activity As Tolerated Home Medications: Atorvastatin Calcium [Lipitor 80 mg Tablet] 80 mg PO DAILY 09/22/17 Escitalopram Oxalate [Lexapro] 20 mg PO DAILY 09/22/17 Esomeprazole Magnesium [Nexium] 40 mg PO DAILY 09/22/17 Losartan/Hydrochlorothiazide [Losartan-Hctz 100-25 mg Tab] 1 tab PO DAILY Methadone HCl [Dolophine 10 mg Tablet] 10 mg PO Q6 09/22/17 Oxycodone HCl 20 mg PO Q6HP PRN 09/22/17 History of Present Illness History of Present Illness: SUDHIR ROBERTSON is a 62 year old female, she has a history of gastric bypass, history of upper GI bleed from anastomotic ulcer, she came to the office on Thursday last week for routine follow-up, blood was drawn, the hemogram came back with hemoglobin of 7.4. She was called from home to be admitted to the hospital for blood transfusion and also for upper GI endoscopy, she also have chronic pain syndrome from severe cervical disc disease, she is status post cervical laminectomy, she is very particular about the radiculopathy she is experiencing, she follows with pain management and she has had multiple injections, epidurals, she has maximized that aspect of therapy, she is also on oral opioids oxycodone and methadone and despite all these she continues to complain of pain. I spoke to the pain specialist, he stated that patient also uses NSAIDs which also raises the risk of GI bleed, the combination of NSAID and epidural injection with steroid increases the risk of GI bleed. She was going to leave AGAINST MEDICAL ADVICE because she was not getting what she perceived as inadequate Dilaudid though she is on oral opioid and as needed Dilaudid.Patient was initially brought in for observation this was transitioned to inpatient care because of the complex history of this patient, she has a history of chronic diastolic heart failure, history of bleeding from anastomotic ulcer from gastric bypass surgery, patient is showing symptoms of instability clinically, she is also requiring frequent pain medication Dilaudid , she will need to be transfused with packed red blood cells, she will need EGD and colonoscopy after she stabilized Hospital Course Hospital Course: She was transfused with 2 units of packed red blood cells, she underwent EGD and colonoscopy today, she was found to have gastric bypass anatomy, mild irritation noted at the anastomosis no active GI bleed was noted the right side colon Was normal biopsy taking. She feels better overall, she has less radiculopathy, she be discharged home today Physical Exam Vital Signs: Temp Pulse Resp BP Pulse Ox 97.4 F 84 18 147/55 H 99 09/24/17 18:09 09/24/17 18:09 09/24/17 18:09 09/24/17 18:09 09/24/17 18:09 Intake & Output 09/23/17 09/24/17 09/25/17 06:59 06:59 06:59 Intake Total 400 350 Output Total 850 Balance -450 350 Weight 60.7 kg General appearance: PRESENT: no acute distress, well-developed, well-nourished Head exam: PRESENT: atraumatic, normocephalic Eye exam: PRESENT: conjunctiva pink, EOMI, PERRLA Ear exam: PRESENT: normal external ear exam Mouth exam: PRESENT: moist, tongue midline Neck exam: PRESENT: full ROM Respiratory exam: PRESENT: clear to auscultation rai Cardiovascular exam: PRESENT: RRR, +S1, +S2 Pulses: PRESENT: normal dorsalis pedis pul, +2 pedal pulses bilateral Vascular exam: PRESENT: normal capillary refill GI/Abdominal exam: PRESENT: normal bowel sounds, soft Rectal exam: PRESENT: deferred Neurological exam: PRESENT: alert Psychiatric exam: PRESENT: appropriate affect, normal mood Skin exam: PRESENT: dry, intact, warm. ABSENT: cyanosis, rash Results Laboratory Results: 09/24/17 05:30 09/24/17 09/24/17 02:00 05:30 WBC 7.0 RBC 4.47 Hgb 10.1 L D Hct 32.0 L MCV 72 L D MCH 22.6 L MCHC 31.6 L RDW 20.6 H Plt Count 313 Seg Neutrophils % 69.7 Lymphocytes % 15.9 Monocytes % 10.3 Eosinophils % 3.3 Basophils % 0.8 Absolute Neutrophils 4.9 Absolute Lymphocytes 1.1 Absolute Monocytes 0.7 Absolute Eosinophils 0.2 Absolute Basophils 0.1 Stool Occult Blood NEGATIVE Impressions: Chest X-Ray 09/22/17 00:00 IMPRESSION: NO ACUTE RADIOGRAPHIC FINDING IN THE CHEST. Qualifiers - * PATIENT BEING DISCHARGED WITH ANY OF THE FOLLOWING DIAGNOSIS: No
== END 2017-09-24 18:35 | disposition home or self-care (01) | DRG 378 ==
LOC: ER 18:19 → EDSTATUS 19:13 → OBSVTOIN 19:38 → EH 19:38 → INTOOBSV 19:38 → 4N 20:45 → OBSVTOIN 09-23 20:27
PROVIDERS: ADMIT Internal Medicine; ATTEND Internal Medicine
PROC: 30233N1 Transfusion of Nonautologous Red Blood Cells into Peripheral Vein, Percutaneous Approach (ICD-10-PCS; principal; 2017-09-23)
PROC: 0DB68ZX Excision of Stomach, Via Natural or Artificial Opening Endoscopic, Diagnostic (ICD-10-PCS; 2017-09-24)
PROC: 0DBF8ZX Excision of Right Large Intestine, Via Natural or Artificial Opening Endoscopic, Diagnostic (ICD-10-PCS; 2017-09-24)
PROC: 0DB58ZX Excision of Esophagus, Via Natural or Artificial Opening Endoscopic, Diagnostic (ICD-10-PCS; 2017-09-24 14:15)
DX: K92.2 Gastrointestinal hemorrhage, unspecified (principal); I50.32 Chronic diastolic (congestive) heart failure; D50.0 Iron deficiency anemia secondary to blood loss (chronic); I11.0 Hypertensive heart disease with heart failure; K21.9 Gastro-esophageal reflux disease without esophagitis; E78.5 Hyperlipidemia, unspecified; F32.9 Major depressive disorder, single episode, unspecified; G89.4 Chronic pain syndrome; M54.12 Radiculopathy, cervical region; M50.90 Cervical disc disorder, unspecified, unspecified cervical region; M51.9 Unspecified thoracic, thoracolumbar and lumbosacral intervertebral disc disorder; Z79.891 Long term (current) use of opiate analgesic; Z79.1 Long term (current) use of non-steroidal anti-inflammatories (NSAID); Z79.899 Other long term (current) drug therapy; Z98.84 Bariatric surgery status
CPT/HCPCS: 36415; 36430; 43239; 45380; 71046; 80048; 80076; 81001; 813; 82272; 85025; 86850; 86900; 86901; 86920; 87040; 88305; 88342; G0378; G0379; J1170; J2704; J3490; J7030; P9016; S0164

== ENCOUNTER → 2018-01-15 | Outpatient (CLI) | payer BC, MEDICARE ==
--- NOTE | 2018-01-15 16:13 | WOMENS IMAGING REPORT ---
EXAM DESCRIPTION: 3D SCREENING MAMMO BILAT COMPLETED DATE/TIME: 01/15/2018 3:55 pm REASON FOR STUDY: BILATERAL MAMMO SCREENING 3D/Z12.31 Z12.31 ENCNTR SCREEN MAMMOGRAM FOR MALIGNANT NEOPLASM OF NITZA COMPARISON: 2011 TECHNIQUE: Standard craniocaudal and mediolateral oblique views of each breast recorded using digita l acquisition and breast tomosynthesis. Additional left exaggerated craniocaudad view. LIMITATIONS: None. FINDINGS: Findings present which are benign by mammographic criteria. No suspicious masses, calcifi cations or architectural distortion. Pertinent benign findings: Benign bilateral breast parenchymal calcifications. Read with the assistance of CAD. .[facility] - R2 Cenova Version 1.3 .[facility] Imaging - R2 Cenova Version 1.3 .[facility] - R2 Cenova Version 2.4 .[facility] [place] Cenova Version 2.4 .[facility] - R2 [place]mer Version 9.2 Benign mammographic findings may include one or more of the following: Smooth masses, popcorn/rim/co arse calcifications, asymmetries, post-procedure changes, and lesions with long-standing stability. IMPRESSION: BENIGN MAMMOGRAPHIC FINDINGS. BIRADS 2 BREAST DENSITY: c. The breasts are heterogeneously dense, which may obscure small masses. BIRAD: 2 BENIGN FINDING(S) RECOMMENDATION: RECOMMENDATION: ROUTINE SCREENING Please continue yearly bilateral screening tomosynthesis in January 2019 COMMENT: The patient has been notified of the results by letter per SA requirements. Additional no tification policies are in place for contacting patient with suspicious or incomplete findings. Quality ID #[id number]: The [employer] recommends an annual screening mammogram for women aged 40 years or over. This facility utilizes a reminder system to ensure that all patients receive reminder letters, and/or direct phone calls for appointments. This includes reminders for routine scr eening mammograms, diagnostic mammograms, or other Breast Imaging Interventions when appropriate. Th is patient will be placed in the appropriate reminder system. The [employer] (ACR) has developed recommendations for screening MRI of the breast s in certain patient populations, to be used in conjunction with mammography. Breast MRI surveillanc e may be appropriate for women with more than 20% lifetime risk of developing breast cancer as deter mined by genetic testing, significant family history of the disease, or history of mantle radiation f or Hodgkins Disease. ACR Practice Guidelines 2008. DBT Technology DBT is a type of tomographic mammography. With conventional mammography, overlapping breast tissue ma y make lesions difficult to detect, even with good compression. DBT uses an x-ray tube that rotates a round the breast, taking images at different angles. These images are then combined to create thin sl ices of the breast that the radiologist can view as a 3D reconstruction. The Hologic unit can perform full-field digital mammograms (2D imaging); or DBT (3D imaging); or both, in a combination mode that quickly performs both the mammogram and the tomosynthesis scan while the breast is still compressed. PQRS 6045F: Fluoroscopic imaging is not utilized for breast tomosynthesis. TECHNICAL DOCUMENTATION: FINDING NUMBER: (1) ASSESSMENT: (1) JOB ID: [id number] [employer]- All Rights Reserved Reading location - IP/workstation name: [email or web address]
== END ==
LOC: WI 14:47
PROVIDERS: ATTEND Internal Medicine
DX: Z12.31 Encounter for screening mammogram for malignant neoplasm of breast (principal)
CPT/HCPCS: 77063; 77067

== ENCOUNTER 2018-09-14 15:52 | Observation (INO) | payer BC, MEDICARE ==
[2018-09-14] MEDS ORDERED: ONDANSETRON HCL INJ/PF 4 MG/2 ML SDV IV ONE (16:19)
[2018-09-14] MEDS ORDERED: NORMAL SALINE 1000 ML 1,000 ML IV ONE (16:19)
[2018-09-14 16:57] LABS: ABSOLUTE BASOPHILS # (AUTO) 0.1 10^3/uL (0.0-0.2); ABSOLUTE EOSINOPHILS # (AUTO) 0.2 10^3/uL (0.0-0.6); ABSOLUTE LYMPHOCYTES (AUTO) 1.5 10^3/uL (0.5-4.7); ABSOLUTE MONOCYTES (AUTO) 0.6 10^3/uL (0.1-1.4); ABSOLUTE NEUT (AUTO) 5.7 10^3/uL (1.7-8.2); BASOPHILS % (AUTO) 1.4 % (0-2); EOSINOPHILS % (AUTO) 1.9 % (0-6); HEMATOCRIT 35.9 % (36.0-47.0); HEMOGLOBIN 11.2 g/dL (12.0-15.5); LYMPHOCYTES % (AUTO) 18.7 % (13-45); MEAN CORPUSCULAR HEMOGLOBIN 23.3 pg (27.0-33.4); MEAN CORPUSCULAR HGB CONC 31.3 g/dL (32.0-36.0); MEAN CORPUSCULAR VOLUME 74 fl (80-97); MONOCYTES % (AUTO) 7.9 % (3-13); PLATELET COUNT 427 10^3/uL (150-450); RED BLOOD COUNT 4.82 10^6/uL (3.72-5.28); RED CELL DISTRIBUTION WIDTH 15.9 % (11.5-14.0); SEGMENTED NEUTROPHILS % (AUTO) 70.1 % (42-78); TOTAL CELLS COUNTED % (AUTO) 100 %; WHITE BLOOD COUNT 8.1 10^3/uL (4.0-10.5)
[2018-09-14 17:20] LABS: ACETAMINOPHEN < 10 ug/mL (10-30); ALANINE AMINOTRANSFERASE 27 U/L (9-52); ALBUMIN 3.9 g/dL (3.5-5.0); ALCOHOL < 10 mg/dL (NONE DETECTED); ALKALINE PHOSPHATASE 104 U/L (38-126); ANION GAP 12 (5-19); ASPARTATE AMINO TRANSFERASE 30 U/L (14-36); BILIRUBIN,DIRECT 0.2 mg/dL (0.0-0.4); BILIRUBIN,TOTAL 0.4 mg/dL (0.2-1.3); BLOOD UREA NITROGEN 17 mg/dL (7-20); CALCIUM 9.6 mg/dL (8.4-10.2); CARBON DIOXIDE 23 mmol/L (22-30); CHLORIDE 106 mmol/L (98-107); GLUCOSE 99 mg/dL (75-110); POTASSIUM 4.3 mmol/L (3.6-5.0); SALICYLATE < 1.0 mg/dL (2.0-20.0); TOTAL PROTEIN 7.3 g/dL (6.3-8.2)
[2018-09-14] MEDS ORDERED: DEXTROSE 5%-LACTATED RINGERS 1,000 ML IV ONE (17:26)
--- NOTE | 2018-09-14 17:27 | ER Document Report ---
Entered by BART SANTILLAN SCRIBE 09/14/18 1629 Acting as scribe for:MICHELLE CASTANEDA MD ED Psych Disorder / Suicide - General Chief Complaint: Overdose Stated Complaint: POSSIBLE OVERDOSE Time Seen by Provider: 09/14/18 16:08 Primary Care Provider: CHRISTY JONES MD [Primary Care Provider] - Follow up as needed Mode of Arrival: Ambulatory Information source: Patient Notes: Patient is a 59 year old female with a history of SI presents to the emergency department due to an overdose. Patient states that she took Lorazepam, Clonidine and possibly trazodone in an attempt to commit suicide. She states she is unsure of how many pills she has taken. Patient states she attempted to commit suicide to end the chronic pain she has. She states "the doctors don't understand... sometimes the pain is so bad I cannot put my clothes on or get out of bed". She states she has had SI in the past and further reports her sister committing suicide at age 44 by self-inflicted gunshot wound. Patient also complains of nausea at this time. TRAVEL OUTSIDE OF THE [place] IN LAST 30 DAYS: No - Related Data Allergies/Adverse Reactions: No Known Allergies Allergy (Verified 10/23/16 13:12) Past Medical History - General Information source: Patient - Social History Smoking Status: Unknown if Ever Smoked Family History: Reviewed & Not Pertinent, Malignancy - Mother had breast cancer and is from the disease - Past Medical History Cardiac Medical History: Reports: Hx Heart Attack, Hx Hypercholesterolemia, Hx Hypertension Pulmonary Medical History: Reports: Hx Asthma, Hx Bronchitis, Hx Pneumonia Neurological Medical History: Reports: Hx Cerebrovascular Accident - right eye GI Medical History: Reports: Hx Gastroesophageal Reflux Disease, Hx Ulcer - gastric ulcer, Hx Colonoscopy, Hx Endoscopy Musculoskeletal Medical History: Reports Hx Arthritis Psychiatric Medical History: Reports: Hx Depression Past Surgical History: Reports: Hx Appendectomy, Hx Bowel Surgery, Hx Gastric Bypass Surgery, Hx Mastectomy, Hx Orthopedic Surgery - cervical laminectomy, Hx Tonsillectomy - Immunizations Immunizations up to date: Yes Hx Diphtheria, Pertussis, Tetanus Vaccination: No Hx Pneumococcal Vaccination: 03/23/12 Review of Systems - Review of Systems Constitutional: No symptoms reported EENT: No symptoms reported Cardiovascular: No symptoms reported Respiratory: No symptoms reported Gastrointestinal: See HPI, Nausea Genitourinary: No symptoms reported Female Genitourinary: No symptoms reported Musculoskeletal: No symptoms reported Skin: No symptoms reported Hematologic/Lymphatic: No symptoms reported Neurological/Psychological: See HPI, Suicidal ideation -: Yes All other systems reviewed and negative Physical Exam - Notes Notes: GENERAL: Alert, tearful, interacts well. No acute distress. HEAD: Normocephalic, atraumatic. EYES: Pupils equal, round, and reactive to light. Extraocular movements intact. ENT: Oral mucosa moist, tongue midline. NECK: Full range of motion. Supple. Trachea midline. LUNGS: Clear to auscultation bilaterally, no wheezes, rales, or rhonchi. No respiratory distress. HEART: Sinus tachycardia with a rate of 136 on bedside process development manager per my interpretation. No murmurs, gallops, or rubs. ABDOMEN: Soft, non-tender. Non-distended. Bowel sounds present in all 4 quadrants. No guarding, rigidity, or rebound. EXTREMITIES: Moves all 4 extremities spontaneously. NEUROLOGICAL: Alert and oriented x3. Normal speech. PSYCH: Tearful. Depressed. SKIN: Warm, dry, normal turgor. No rashes or lesions noted. Course - Laboratory Result Diagrams: 09/14/18 16:40 09/14/18 16:40 Laboratory results interpreted by me: 09/14/18 09/14/18 16:40 16:40 Hgb 11.2 L Hct 35.9 L MCV 74 L MCH 23.3 L MCHC 31.3 L RDW 15.9 H Salicylates < 1.0 L Acetaminophen < 10 L - EKG Interpretation by Ri EKG shows normal: Sinus rhythm, [place], Intervals, QRS Complexes. abnormal: ST-T Waves - Diffuse nonspecific repolarization abnormality Rate: Tachycardia - 121 - Consults Dr. Jones Time consulted: 17:50 Consulted provider: will see as inpatient Critical Care Note - Critical Care Note Total time excluding time spent on procedures (mins): 40 Discharge - Discharge Clinical Impression: Suicide attempt, Chronic pain syndrome Overdose Qualifiers: Encounter type: initial encounter Injury intent: intentional self-harm Qualified Code(s): T50.902A - Poisoning by unspecified drugs, medicaments and biological substances, intentional self-harm, initial encounter Depression Qualifiers: Depression Type: unspecified Qualified Code(s): F32.9 - Major depressive disorder, single episode, unspecified Condition: Good Disposition: ADMITTED INPATIENT Admitting Provider: [facility] Admitted: [facility] Referrals: CHRISTY JONES MD [Primary Care Provider] - Follow up as needed Scribe Attestation: 09/14/18 17:52 I personally performed the services described in the documentation, reviewed and edited the documentation which was dictated to the scribe in my presence, and it accurately records my words and actions. I personally performed the services described in the documentation, reviewed and edited the documentation which was dictated to the scribe in my presence, and it accurately records my words and actions.
[2018-09-14 17:34] LABS: APPEARANCE,URINE CLEAR; BILIRUBIN,URINE NEGATIVE (NEGATIVE); COLOR,URINE STRAW; GLUCOSE, URINE NEGATIVE (NEGATIVE); KETONES,URINE NEGATIVE (NEGATIVE); LEUKOCYTE ESTERASE,URINE NEGATIVE (NEGATIVE); NITRITE,URINE NEGATIVE (NEGATIVE); PROTEIN,URINE NEGATIVE (NEGATIVE); URINE SPECIFIC GRAVITY 1.008; UROBILINOGEN,URINE NEGATIVE mg/dL (<2.0)
[2018-09-14 17:59] LABS: URINE AMPHETAMINES SCREEN UNCONFIRMED POSITIVE; URINE BARBITURATES SCREEN NEGATIVE; URINE BENZODIAZEPINES SCREEN NEGATIVE; URINE COCAINE SCREEN NEGATIVE; URINE MARIJUANA (THC) SCREEN NEGATIVE; URINE METHADONE SCREEN NEGATIVE; URINE PHENCYCLIDINE SCREEN NEGATIVE
[2018-09-14 18:21] VITALS: BP 135/88
[2018-09-14] MEDS ORDERED: NORMAL SALINE 1000 ML 1,000 ML IV PRN (20:22)
[2018-09-14] MEDS ORDERED: ENOXAPARIN SODIUM INJ 40 MG/0.4 ML DISP.SYRIN SUBCUT SCH (20:30)
[2018-09-14] MEDS ORDERED: CLONIDINE HCL 0.1 MG TABLET PO SCH (22:00)
--- NOTE | 2018-09-14 23:27 | EKG REPORT ---
SEVERITY:- ABNORMAL ECG - SINUS TACHYCARDIA NONSPECIFIC REPOL ABNORMALITY, DIFFUSE LEADS : Confirmed by: Concha Valentine 14-Sep-2018 23:27:15
--- NOTE | 2018-09-15 19:02 | PDOC H&P ---
History of Present Illness Admission Date/PCP: 09/14/18 18:03 CHRISTY JONES MD History of Present Illness: SUDHIR ROBERTSON is a 63 year old female.She supposedly took medications with the intent to commit suicide. She has chronic pain syndrome due to degenerative arthritis of the cervical spine, she follows with pain management, [facility]. 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 I was later made to understand that the story was that [facility] was making effort to wean her of opioid because she apparently was abusing the medication, when I became aware of that history I voided the methadone prescription that I prescribed for her, I was also made aware that the pain specialist also voided the prescription that she was given, because of all these factors she was upset and she supposedly took medication with the intent to commit suicide. The UDS that was done in the emergency room was negative except for amphetamine which is what she takes normally Past Medical History Cardiac Medical History: Reports: Myocardial Infarction, Hyperlipidema, Hypertension Pulmonary Medical History: Reports: Asthma, Bronchitis, Pneumonia Neurological Medical History: GI Medical History: Reports: Gastroesophageal Reflux Disease Musculoskeltal Medical History: Reports: Arthritis Psychiatric Medical History: Reports: Depression Past Surgical History Past Surgical History: Reports: Appendectomy, Gastric Bypass Surgery, Mastectomy, Orthopedic Surgery - cervical laminectomy, Tonsillectomy Social History Smoking Status: Unknown if Ever Smoked Frequency of Alcohol Use: Occasional Hx Recreational Drug Use: No Drugs: None Hx Prescription Drug Abuse: No - Advance Directive Resuscitation Status: Full Code Family History Family History: Reviewed & Not Pertinent, Malignancy - Mother had breast cancer and is from the disease Parental Family History Reviewed: Yes Children Family History Reviewed: Yes Sibling(s) Family History Reviewed.: Yes Medication/Allergy Allergies/Adverse Reactions: No Known Allergies Allergy (Verified 10/23/16 13:12) Review of Systems ROS unobtainable: Other Physical Exam Vital Signs: Temp Pulse Resp BP Pulse Ox 103 H 18 135/88 H 100 09/14/18 19:48 09/14/18 18:01 09/14/18 18:00 09/14/18 18:01 Intake & Output 09/14/18 09/15/18 09/16/18 06:59 06:59 06:59 Intake Total 1000 Balance 1000 General appearance: PRESENT: no acute distress, well-developed, well-nourished Head exam: PRESENT: atraumatic, normocephalic Eye exam: PRESENT: conjunctiva pink, EOMI, PERRLA Ear exam: PRESENT: normal external ear exam Mouth exam: PRESENT: moist, tongue midline Neck exam: PRESENT: full ROM Respiratory exam: PRESENT: clear to auscultation rai Cardiovascular exam: PRESENT: RRR, +S1, +S2 Pulses: PRESENT: normal dorsalis pedis pul, +2 pedal pulses bilateral Vascular exam: PRESENT: normal capillary refill GI/Abdominal exam: PRESENT: soft Rectal exam: PRESENT: deferred Neurological exam: PRESENT: alert, awake, oriented to person, oriented to place, oriented to time, oriented to situation, CN II-XII grossly intact Psychiatric exam: PRESENT: appropriate affect, normal mood Skin exam: PRESENT: dry, intact, warm Results Laboratory Results: 09/14/18 16:40 09/14/18 16:40 Assessment & Plan - Diagnosis (1) Drug overdose Qualifiers: Encounter type: initial encounter Injury intent: intentional self-harm Qualified Code(s): T50.902A - Poisoning by unspecified drugs, medicaments and biological substances, intentional self-harm, initial encounter Is this a current diagnosis for this admission?: Yes Plan: Patient is admitted for observation and close monitoring,she be seen by psychiatry in a.m.
--- NOTE | 2018-09-15 19:03 | Left Against Medical Advice ---
Against Medical Advice Admission Date/Time: 09/14/18 18:03 Primary Care Provider: CHRISTY JONES MD Date of Patient Emigration: 09/14/18 - Diagnosis: (1) Drug overdose Is this a current diagnosis for this admission?: Yes - Summary: Summary: Please see Admission and Progress Notes as well. SUDHIR ROBERTSON is a 63 F, who LEFT AGAINST MEDICAL ADVICE. The Patient was admitted on 09/14/18 18:03.
== END 2018-09-14 21:15 | disposition left against medical advice (07) ==
LOC: ER 15:52 → EH 18:03 → INTOOBSV 18:03 → 3S 19:00
PROVIDERS: ADMIT Internal Medicine; ATTEND Internal Medicine
DX: T50.902A Poisoning by unspecified drugs, medicaments and biological substances, intentional self-harm, initial encounter (principal); Z53.21 Procedure and treatment not carried out due to patient leaving prior to being seen by health care provider; G89.4 Chronic pain syndrome; M47.892 Other spondylosis, cervical region; F32.9 Major depressive disorder, single episode, unspecified; R11.0 Nausea; R00.0 Tachycardia, unspecified; R94.31 Abnormal electrocardiogram [ECG] [EKG]; I25.2 Old myocardial infarction; Z91.5 Personal history of self-harm; Z86.73 Personal history of transient ischemic attack (TIA), and cerebral infarction without residual deficits; Z81.8 Family history of other mental and behavioral disorders; Z98.84 Bariatric surgery status; Z90.49 Acquired absence of other specified parts of digestive tract; Z98.890 Other specified postprocedural states
CPT/HCPCS: 93005; 99291; 96361; 51701; 96374; 36415; 80307 ×4; 85025; 80053; 81001; 93010; J2405; J7030

== ENCOUNTER → 2019-03-23 | Outpatient (CLI) | payer BC, MEDICARE ==
--- NOTE | 2019-03-23 15:11 | RADIOLOGY REPORT (SQ) ---
EXAM DESCRIPTION: WRIST BILATERAL 2 VIEWS COMPLETED DATE/TIME: 03/23/2019 2:18 pm REASON FOR STUDY: FALL (ON) (FROM) OTHER STAIRS AND STEPS, SEQUELA W10.8XXS FALL (ON) (FROM) OTHER STAIRS AND STEPS, SEQUELA COMPARISON: None. NUMBER OF VIEWS: Two views. TECHNIQUE: AP, lateral, and oblique radiographic images acquired of the right and left wrist. LIMITATIONS: None. FINDINGS: MINERALIZATION: Normal. BONES: There is comminuted fracture of the distal 5th left metacarpal. There is slight irregularity of the distal left radius. Nondisplaced fracture cannot be excluded. The right wrist is intact. SOFT TISSUES: No soft tissue swelling. No foreign body. OTHER: No other significant finding. IMPRESSION: Suspect nondisplaced fracture of the distal left radius. There is a comminuted fracture of the distal 5th left metacarpal. TECHNICAL DOCUMENTATION: JOB ID: [id number] [employer]- All Rights Reserved Reading location - IP/workstation name: [email or web address]
--- NOTE | 2019-03-23 15:11 | RADIOLOGY REPORT (SQ) ---
EXAM DESCRIPTION: SHOULDER BILAT 2 OR MORE VIEWS COMPLETED DATE/TIME: 03/23/2019 2:18 pm REASON FOR STUDY: FALL (ON) (FROM) OTHER STAIRS AND STEPS, SEQUELA W10.8XXS FALL (ON) (FROM) OTHER STAIRS AND STEPS, SEQUELA COMPARISON: None. NUMBER OF VIEWS: Three views. TECHNIQUE: Internal rotation, external rotation, and Y view images acquired of the right and left sh oulder. LIMITATIONS: None. FINDINGS: MINERALIZATION: Normal. BONES: No acute fracture. No worrisome bone lesions. JOINTS: No dislocation. VISUALIZED LUNGS AND RIBS: No pneumothorax. No rib fracture. SOFT TISSUES: No radiopaque foreign body. OTHER: No other significant finding. IMPRESSION: NEGATIVE STUDY OF THE RIGHT AND LEFT SHOULDERS. NO RADIOGRAPHIC EVIDENCE OF ACUTE INJURY . TECHNICAL DOCUMENTATION: JOB ID: [id number] [employer]- All Rights Reserved Reading location - IP/workstation name: [email or web address]
== END ==
LOC: OD 13:43
PROVIDERS: ATTEND Internal Medicine
DX: T14.90XS Injury, unspecified, sequela (principal); W10.8XXS Fall (on) (from) other stairs and steps, sequela

== ENCOUNTER → 2019-05-09 | Outpatient (CLI) | payer BC, MEDICARE ==
--- NOTE | 2019-05-09 18:57 | RADIOLOGY REPORT (SQ) ---
EXAM DESCRIPTION: FOREARM RIGHT COMPLETED DATE/TIME: 05/09/2019 5:44 pm REASON FOR STUDY: (M25.531) M25.531 PAIN IN RIGHT WRIST COMPARISON: None. NUMBER OF VIEWS: Two views. TECHNIQUE: Two radiographic images acquired of the right forearm, including elbow and wrist in at le ast one projection. LIMITATIONS: None. FINDINGS: MINERALIZATION: Normal. BONES: Possible impacted fracture of the distal radius. No angulation. SOFT TISSUES: No obvious swelling or foreign body. OTHER: No other significant finding. IMPRESSION: Possible impacted fracture of the distal radius. TECHNICAL DOCUMENTATION: JOB ID: [id number] [employer] All Rights Reserved Reading location - IP/workstation name: [email or web address]
--- NOTE | 2019-05-09 18:59 | RADIOLOGY REPORT (SQ) ---
EXAM DESCRIPTION: HAND RIGHT 3 VIEWS COMPLETED DATE/TIME: 05/09/2019 5:44 pm REASON FOR STUDY: (M25.531) M25.531 PAIN IN RIGHT WRIST COMPARISON: None. EXAM PARAMETERS: NUMBER OF VIEWS: Three views. TECHNIQUE: AP, lateral and oblique radiographic images acquired of the right hand. LIMITATIONS: None. FINDINGS: MINERALIZATION: Normal. BONES: Fracture of the ulnar styloid. Cannot exclude a slightly impacted fracture of the distal radi us. JOINTS: No effusions. SOFT TISSUES: No soft tissue swelling. No foreign body. OTHER: No other significant finding. IMPRESSION: Fracture of the ulnar styloid. Cannot exclude slightly impacted fracture of the distal radius. TECHNICAL DOCUMENTATION: JOB ID: [id number] [employer]- All Rights Reserved Reading location - IP/workstation name: [email or web address]
--- NOTE | 2019-05-09 19:00 | RADIOLOGY REPORT (SQ) ---
EXAM DESCRIPTION: WRIST RIGHT 3 VIEWS COMPLETED DATE/TIME: 05/09/2019 5:44 pm REASON FOR STUDY: (M25.531) M25.531 PAIN IN RIGHT WRIST COMPARISON: None. NUMBER OF VIEWS: Three views. TECHNIQUE: AP, lateral, and oblique radiographic images acquired of the right wrist. LIMITATIONS: None. FINDINGS: MINERALIZATION: Normal. BONES: Fracture of the ulnar styloid. Cannot exclude slightly impacted fracture of the distal radius . SOFT TISSUES: No soft tissue swelling. No foreign body. OTHER: No other significant finding. IMPRESSION: Fracture of the ulnar styloid. Cannot exclude impacted fracture of the distal radius. TECHNICAL DOCUMENTATION: JOB ID: [id number] [employer]- All Rights Reserved Reading location - IP/workstation name: [email or web address]
== END ==
LOC: RAD 17:16
PROVIDERS: ATTEND Internal Medicine
DX: S52.611A Displaced fracture of right ulna styloid process, initial encounter for closed fracture (principal); M25.531 Pain in right wrist; X58.XXXA Exposure to other specified factors, initial encounter

== ENCOUNTER 2019-08-08 21:19 | Inpatient (IN) | payer BC, MEDICARE ==
[2019-08-08] MEDS ORDERED: HYDROMORPHONE HCL INJ/PF 2 MG/ML AMPULE IV PRN (22:20)
[2019-08-08 22:23] LABS: HEMATOCRIT 25.9 % (36.0-47.0); HEMOGLOBIN 8.4 g/dL (12.0-15.5); MEAN CORPUSCULAR HEMOGLOBIN 23.1 pg (27.0-33.4); MEAN CORPUSCULAR HGB CONC 32.3 g/dL (32.0-36.0); MEAN CORPUSCULAR VOLUME 71 fl (80-97); PLATELET COUNT 366 10^3/uL (150-450); RED BLOOD COUNT 3.63 10^6/uL (3.72-5.28); RED CELL DISTRIBUTION WIDTH 17.2 % (11.5-14.0); WHITE BLOOD COUNT 7.4 10^3/uL (4.0-10.5)
[2019-08-08 22:48] LABS: ALBUMIN 3.4 g/dL (3.5-5.0); ALKALINE PHOSPHATASE 102 U/L (38-126); ANION GAP 5 (5-19); ASPARTATE AMINO TRANSFERASE 51 U/L (14-36); BILIRUBIN,DIRECT 0.3 mg/dL (0.0-0.4); BILIRUBIN,TOTAL 0.4 mg/dL (0.2-1.3); BLOOD UREA NITROGEN 20 mg/dL (7-20); CALCIUM 8.5 mg/dL (8.4-10.2); CARBON DIOXIDE 27 mmol/L (22-30); CHLORIDE 105 mmol/L (98-107); GLUCOSE 98 mg/dL (75-110); POTASSIUM 3.1 mmol/L (3.6-5.0); TOTAL PROTEIN 7.1 g/dL (6.3-8.2)
[2019-08-08] MEDS ORDERED: POTASSI CL 20 MEQ/50 ML RIDER 20 MEQ/50 ML RTUPB IV ONE (22:57)
[2019-08-08] MEDS: NORMAL SALINE 1000 ML 1,000 ML IV PRN (23:33)
[2019-08-08] MEDS: PANTOPRAZOLE SODIUM 40 MG TABLET.DR PO SCH (23:50)
[2019-08-09 04:12] LABS: APPEARANCE,URINE CLEAR; BILIRUBIN,URINE NEGATIVE (NEGATIVE); COLOR,URINE STRAW; GLUCOSE, URINE 50 mg/dL (NEGATIVE); KETONES,URINE NEGATIVE (NEGATIVE); LEUKOCYTE ESTERASE,URINE NEGATIVE (NEGATIVE); NITRITE,URINE NEGATIVE (NEGATIVE); PROTEIN,URINE NEGATIVE (NEGATIVE); URINE SPECIFIC GRAVITY 1.009; UROBILINOGEN,URINE NEGATIVE mg/dL (<2.0)
[2019-08-09 09:27] LABS: HEMOGLOBIN 8.7 g/dL (12.0-15.5); MEAN CORPUSCULAR HEMOGLOBIN 22.8 pg (27.0-33.4); MEAN CORPUSCULAR HGB CONC 32.1 g/dL (32.0-36.0); MEAN CORPUSCULAR VOLUME 71 fl (80-97); PLATELET COUNT 378 10^3/uL (150-450); RED CELL DISTRIBUTION WIDTH 17.5 % (11.5-14.0); WHITE BLOOD COUNT 6.5 10^3/uL (4.0-10.5)
[2019-08-09] MEDS: PANTOPRAZOLE SODIUM 40 MG TABLET.DR PO SCH ×2 (09:48→18:10)
[2019-08-09] MEDS ORDERED: (PENDING PHARMACY ID) (Losartan/Hydrochlorothiazide [Losartan-Hctz 100-25 Mg Tab] 1 EACH) PO SCH (11:00)
[2019-08-09] MEDS: HYDROMORPHONE HCL INJ/PF 2 MG/ML AMPULE IV PRN ×4 (11:02→19:22)
[2019-08-09 11:09] LABS: ANION GAP 8 (5-19); BLOOD UREA NITROGEN 16 mg/dL (7-20); CALCIUM 8.4 mg/dL (8.4-10.2); CARBON DIOXIDE 24 mmol/L (22-30); CHLORIDE 105 mmol/L (98-107); GLUCOSE 86 mg/dL (75-110); POTASSIUM 3.5 mmol/L (3.6-5.0)
[2019-08-09] MEDS: ESCITALOPRAM OXALATE 10 MG TABLET PO SCH (11:21)
[2019-08-09] MEDS: HYDROCHLOROTHIAZIDE 25 MG TABLET PO SCH (11:21)
[2019-08-09] MEDS: LOSARTAN POTASSIUM 50 MG TABLET PO SCH (11:22)
[2019-08-09] MEDS: NORMAL SALINE 1000 ML 1,000 ML IV PRN (15:40)
[2019-08-09] MEDS ORDERED: [UNRECOGNIZED DRUG - OTHER] PO SCH (18:00)
[2019-08-09] MEDS ORDERED: AMPHETAMINE PO SCH (18:00)
[2019-08-09] MEDS ORDERED: DEXTROAMPHETAMINE PO SCH (18:00)
--- NOTE | 2019-08-09 18:11 | PDOC CONSULTATION ---
Consultation Consult Date: 08/09/19 Provider Consulted: CHANELL CERRATO Consult reason:: GI bleeding History of Present Illness Admission Date/PCP: 08/08/19 21:19 CHRISTY JONES MD History of Present Illness: SUDHIR ROBERTSON is a 64 year old female I was personally contacted by Dr Hill, this patient has required admission for documentation of gi bleeding she has been seen by myself in the past she went to her primary's office late yesterday complaining of having active GI rectal bleeding she was admitted her Hgb is low at around 8.5 , her baseline is about 12-13 this represents a significant drop she is symptomatic please see Dr Cartwright's history and physical so far stable but this does represent and urgent to emergent situation that does require a scope. I will put her on the schedule with Propofol sedation Dr Hill does agree with the urgency of this situation Past Medical History Cardiac Medical History: Reports: Myocardial Infarction, Hyperlipidema, Hypertension Pulmonary Medical History: Reports: Asthma, Bronchitis, Pneumonia Neurological Medical History: GI Medical History: Reports: Gastroesophageal Reflux Disease Musculoskeltal Medical History: Reports: Arthritis Psychiatric Medical History: Reports: Depression Past Surgical History Past Surgical History: Reports: Appendectomy, Gastric Bypass Surgery, Mastectomy, Orthopedic Surgery - cervical laminectomy, Tonsillectomy Denies: Hysterectomy, Tubal Ligation Social History Smoking Status: Never Smoker Electronic Cigarette use?: No Frequency of Alcohol Use: Occasional Hx Recreational Drug Use: No Drugs: None Hx Prescription Drug Abuse: No Family History Family History: Reviewed & Not Pertinent, Malignancy - Mother had breast cancer and is from the disease Parental Family History Reviewed: Yes Children Family History Reviewed: Unknown Sibling(s) Family History Reviewed.: Unknown Medication/Allergy Home Medications: Dextroamphetamine/Amphetamine [Dextroamp-Amphetamin 30 mg Tab] 30 mg PO BID 08/09/19 Escitalopram Oxalate [Lexapro] 20 mg PO DAILY 08/09/19 Losartan/Hydrochlorothiazide [Losartan-Hctz 100-25 mg Tab] 1 each PO DAILY 08/09/19 Omeprazole 20 mg PO DAILY 08/09/19 Allergies/Adverse Reactions: No Known Allergies Allergy (Verified 10/23/16 13:12) Review of Systems Constitutional: ABSENT: fever(s), headache(s), night sweats, weakness Eyes: ABSENT: visual disturbances Ears: ABSENT: hearing changes Nose, Mouth, and Throat: ABSENT: mouth pain, sore throat Respiratory: ABSENT: dyspnea, hemoptysis Gastrointestinal: ABSENT: diarrhea, hematochezia, melena, nausea, vomiting Genitourinary: ABSENT: dysuria, hematuria Musculoskeletal: ABSENT: deformity, joint swelling Neurological: ABSENT: syncope, tingling, tremor(s), vertigo Endocrine: ABSENT: polydipsia, polyphagia Hematologic/Lymphatic: ABSENT: easy bruising Physical Exam Vital Signs: Temp Pulse Resp BP Pulse Ox 98.4 F 70 16 132/97 H 98 08/09/19 15:32 08/09/19 15:32 08/09/19 15:32 08/09/19 15:32 08/09/19 15:32 Intake & Output 08/08/19 08/09/19 08/10/19 06:59 06:59 06:59 Intake Total 100 1280 Output Total 500 Balance -400 1280 Weight 56.7 kg General appearance: PRESENT: well-developed. ABSENT: well-nourished Head exam: ABSENT: atraumatic, normocephalic Eye exam: PRESENT: PERRLA. ABSENT: scleral icterus Mouth exam: ABSENT: moist, neck supple Neck exam: ABSENT: meningismus, thyromegaly Respiratory exam: ABSENT: symmetrical, unlabored, wheezes Cardiovascular exam: PRESENT: +S1 GI/Abdominal exam: ABSENT: Calixto's sign, rebound Gentrourinary exam: ABSENT: lesions Extremities exam: ABSENT: joint swelling Neurological exam: PRESENT: alert, awake, CN II-XII grossly intact Skin exam: PRESENT: normal color, pallor. ABSENT: mottled, petechiae Results Laboratory Results: 08/09/19 08:19 08/09/19 10:00 08/08/19 08/08/19 08/09/19 22:11 22:11 03:50 WBC 7.4 RBC 3.63 L Hgb 8.4 L Hct 25.9 L MCV 71 L MCH 23.1 L MCHC 32.3 RDW 17.2 H Plt Count 366 Sodium 137.1 Potassium 3.1 L Chloride 105 Carbon Dioxide 27 Anion Gap 5 BUN 20 Creatinine 0.82 Est GFR ( Amer) > 60 Est GFR (Non-Af Amer) Glucose 98 Calcium 8.5 Total Bilirubin 0.4 AST 51 H Alkaline Phosphatase 102 Total Protein 7.1 Albumin 3.4 L Urine Color STRAW Urine Appearance CLEAR Urine pH 7.0 Ur Specific [place] 1.009 Urine Protein NEGATIVE Urine Glucose (UA) 50 H Urine Ketones NEGATIVE Urine Blood NEGATIVE Urine Nitrite NEGATIVE Ur Leukocyte Esterase NEGATIVE Urine WBC (Auto) 1 Urine RBC (Auto) 0 08/09/19 08/09/19 08/09/19 08:19 08:19 10:00 WBC 6.5 RBC 3.80 Hgb 8.7 L Hct 27.0 L MCV 71 L MCH 22.8 L MCHC 32.1 RDW 17.5 H Plt Count 378 Sodium Cancelled 137.1 Potassium Cancelled 3.5 L Chloride Cancelled 105 Carbon Dioxide Cancelled 24 Anion Gap Cancelled 8 BUN Cancelled 16 Creatinine Cancelled 0.73 Est GFR ( Amer) Cancelled > 60 Est GFR (Non-Af Amer) Cancelled Glucose Cancelled 86 Calcium Cancelled 8.4 Total Bilirubin AST Alkaline Phosphatase Total Protein Albumin Urine Color Urine Appearance Urine pH Ur Specific [place] Urine Protein Urine Glucose (UA) Urine Ketones Urine Blood Urine Nitrite Ur Leukocyte Esterase Urine WBC (Auto) Urine RBC (Auto) Assessment & Plan - Diagnosis (1) Acute ischemic enterocolitis Plan: will need EGD and colonoscopy will prep and perform in OR tomorrow she has been admitted with active symptoms and fortunately her Hgb is stable she does have a history of cardiac disease,she may need a transfusion Risks, benefits and alternatives are discussed with the patient in detail further recommendations to follow she is willing to schedule I have spoken to Dr Hill who also agrees that the procedures need to done an cannot be deferred as an outpatient differential to include diverticular bleeding as well - Time Time Spent: 50 to 70 Minutes
[2019-08-09] MEDS ORDERED: DEXTROSE 50%-WATER 25 GM/50 ML DISP.SYRIN IV PRN ×2 (18:21)
[2019-08-09] MEDS ORDERED: GLUCAGON,HUMAN RECOMB 1 MG INJ SUBCUT PRN (18:21)
[2019-08-09] MEDS ORDERED: DEXTROSE 40% GEL 15 GM TUBE PO PRN ×2 (18:21)
[2019-08-09] MEDS ORDERED: PEG 3350/NA SULF,BICARB,CL/KCL 4000 ML PO ONE (19:00)
--- NOTE | 2019-08-09 19:08 | PDOC H&P ---
History of Present Illness Admission Date/PCP: 08/08/19 21:19 CHRISTY JONES MD History of Present Illness: SUDHIR ROBERTSON is a 64 year old female patient is well-known to me she came to the office about 4 PM for evaluation of active GI bleed rectally, she has a history of gastric bypass with a history of anastomotic bleed, I saw her in the office about 2 months ago when she came for follow-up evaluation at that time I did routine blood work, she was found to have iron deficiency anemia, at the time the hemoglobin was 10, I referred her to see Dr. Yenni VALDEZ but for some reason she never kept the appointment. She came to the office late Thursday evening with active GI bleed in the setting of COVID 19 pandemic I decided to admit directly rather than going to the ER for evaluation to reduce the risk of exposure to COVID 19 she has other medical problems including hypertension history of atheroma embolic disease, osteoporosis. She has a fracture of the wrist from a fall she was supposed to see orthopedic she never did, the wrist looks deformed suggesting nonunion or malunion deformity. Past Medical History Cardiac Medical History: Reports: Myocardial Infarction, Hyperlipidema, Hypertension Pulmonary Medical History: Reports: Asthma, Bronchitis, Pneumonia Neurological Medical History: GI Medical History: Reports: Gastroesophageal Reflux Disease Musculoskeltal Medical History: Reports: Arthritis Psychiatric Medical History: Reports: Depression Past Surgical History Past Surgical History: Reports: Appendectomy, Gastric Bypass Surgery, Mastectomy, Orthopedic Surgery - cervical laminectomy, Tonsillectomy Social History Smoking Status: Never Smoker Electronic Cigarette use?: No Frequency of Alcohol Use: Occasional Hx Recreational Drug Use: No Drugs: None Hx Prescription Drug Abuse: No Family History Family History: Reviewed & Not Pertinent, Malignancy - Mother had breast cancer and is from the disease Parental Family History Reviewed: Yes Children Family History Reviewed: Yes Sibling(s) Family History Reviewed.: Yes Medication/Allergy Home Medications: Dextroamphetamine/Amphetamine [Dextroamp-Amphetamin 30 mg Tab] 30 mg PO BID 08/09/19 Escitalopram Oxalate [Lexapro] 20 mg PO DAILY 08/09/19 Losartan/Hydrochlorothiazide [Losartan-Hctz 100-25 mg Tab] 1 each PO DAILY 08/09/19 Omeprazole 20 mg PO DAILY 08/09/19 Allergies/Adverse Reactions: No Known Allergies Allergy (Verified 10/23/16 13:12) Review of Systems Constitutional: PRESENT: fatigue Eyes: ABSENT: visual disturbances Ears: ABSENT: hearing changes Cardiovascular: ABSENT: chest pain, dyspnea on exertion, edema, orthropnea, pa lpitations Respiratory: ABSENT: cough, hemoptysis Gastrointestinal: PRESENT: hematochezia Genitourinary: ABSENT: dysuria, hematuria Musculoskeletal: ABSENT: joint swelling Integumentary: ABSENT: rash, wounds Neurological: ABSENT: abnormal gait, abnormal speech, confusion, dizziness, focal weakness, syncope Psychiatric: ABSENT: anxiety, depression, homidical ideation, suicidal ideation Endocrine: ABSENT: cold intolerance, heat intolerance, menstrual abnormalities, polydipsia, polyuria Hematologic/Lymphatic: ABSENT: easy bleeding, easy bruising, lymphadenopathy Physical Exam Vital Signs: Temp Pulse Resp BP Pulse Ox 98.4 F 70 16 132/97 H 98 08/09/19 15:32 08/09/19 15:32 08/09/19 15:32 08/09/19 15:32 08/09/19 15:32 Intake & Output 08/08/19 08/09/19 08/10/19 06:59 06:59 06:59 Intake Total 100 1540 Output Total 500 Balance -400 1540 Weight 56.7 kg General appearance: PRESENT: no acute distress Head exam: PRESENT: atraumatic, normocephalic Eye exam: PRESENT: conjunctiva pink, EOMI, PERRLA Ear exam: PRESENT: normal external ear exam Mouth exam: PRESENT: moist, tongue midline Neck exam: PRESENT: full ROM Respiratory exam: PRESENT: clear to auscultation rai Cardiovascular exam: PRESENT: RRR, +S1, +S2 Pulses: PRESENT: normal dorsalis pedis pul, +2 pedal pulses bilateral Vascular exam: PRESENT: normal capillary refill GI/Abdominal exam: PRESENT: normal bowel sounds, soft Rectal exam: PRESENT: deferred Neurological exam: PRESENT: alert, oriented to person, oriented to place, oriented to time, CN II-XII grossly intact Psychiatric exam: PRESENT: appropriate affect, normal mood Skin exam: PRESENT: dry, intact, warm Results Laboratory Results: 08/09/19 08:19 08/09/19 10:00 08/08/19 08/08/19 08/09/19 22:11 22:11 03:50 WBC 7.4 RBC 3.63 L Hgb 8.4 L Hct 25.9 L MCV 71 L MCH 23.1 L MCHC 32.3 RDW 17.2 H Plt Count 366 Sodium 137.1 Potassium 3.1 L Chloride 105 Carbon Dioxide 27 Anion Gap 5 BUN 20 Creatinine 0.82 Est GFR ( Amer) > 60 Est GFR (Non-Af Amer) Glucose 98 Calcium 8.5 Total Bilirubin 0.4 AST 51 H Alkaline Phosphatase 102 Total Protein 7.1 Albumin 3.4 L Urine Color STRAW Urine Appearance CLEAR Urine pH 7.0 Ur Specific [place] 1.009 Urine Protein NEGATIVE Urine Glucose (UA) 50 H Urine Ketones NEGATIVE Urine Blood NEGATIVE Urine Nitrite NEGATIVE Ur Leukocyte Esterase NEGATIVE Urine WBC (Auto) 1 Urine RBC (Auto) 0 08/09/19 08/09/19 08/09/19 08:19 08:19 10:00 WBC 6.5 RBC 3.80 Hgb 8.7 L Hct 27.0 L MCV 71 L MCH 22.8 L MCHC 32.1 RDW 17.5 H Plt Count 378 Sodium Cancelled 137.1 Potassium Cancelled 3.5 L Chloride Cancelled 105 Carbon Dioxide Cancelled 24 Anion Gap Cancelled 8 BUN Cancelled 16 Creatinine Cancelled 0.73 Est GFR ( Amer) Cancelled > 60 Est GFR (Non-Af Amer) Cancelled Glucose Cancelled 86 Calcium Cancelled 8.4 Total Bilirubin AST Alkaline Phosphatase Total Protein Albumin Urine Color Urine Appearance Urine pH Ur Specific [place] Urine Protein Urine Glucose (UA) Urine Ketones Urine Blood Urine Nitrite Ur Leukocyte Esterase Urine WBC (Auto) Urine RBC (Auto) Assessment & Plan - Diagnosis (1) Lower GI bleed Is this a current diagnosis for this admission?: Yes Plan: She has lower GI bleed, patient will need emergent GI endoscopy including colonoscopy and EGD, will consult Dr. Hyman GI (2) Essential (primary) hypertension Is this a current diagnosis for this admission?: Yes Plan: Continue her regular medication for blood pressure (3) Anemia Qualifiers: Anemia type: iron deficiency Iron deficiency anemia type: chronic blood loss Qualified Code(s): D50.0 - Iron deficiency anemia secondary to blood loss (chronic) Is this a current diagnosis for this admission?: Yes Plan: The hemoglobin is not low enough for blood transfusion, transfuse Injectafer
[2019-08-09] MEDS ORDERED: FERRIC CARBOXYMALTOSE INJ 750 MG/15 ML VIAL IV SCH (19:15)
[2019-08-09] MEDS: DIPHENHYDRAMINE HCL 50 MG/ML VIAL IV PRN (19:22)
[2019-08-09] MEDS ORDERED: FERRIC CARBOXYMALTOSE 750 MG in NORMAL SALINE 250 ML IV SCH (22:00)
--- NOTE | 2019-08-09 23:23 | PDOC PROGRESS REPORT ---
Subjective Progress Note for:: 08/09/19 Subjective:: Patient admitted yesterday for the management of active GI bleed, seen by GI scheduled for GI endoscopy Reason For Visit: GI BLEED Physical Exam Vital Signs: Temp Pulse Resp BP Pulse Ox 98.2 F 81 18 158/84 H 98 08/09/19 20:34 08/09/19 20:34 08/09/19 20:34 08/09/19 20:34 08/09/19 20:34 Intake & Output 08/08/19 08/09/19 08/10/19 06:59 06:59 06:59 Intake Total 100 1540 Output Total 500 Balance -400 1540 Weight 56.7 kg General appearance: PRESENT: no acute distress Eye exam: PRESENT: PERRLA Respiratory exam: PRESENT: clear to auscultation rai Cardiovascular exam: PRESENT: +S1, +S2 GI/Abdominal exam: PRESENT: soft Neurological exam: PRESENT: alert Results Laboratory Results: 08/09/19 08:19 08/09/19 10:00 08/09/19 08/09/19 08/09/19 03:50 08:19 08:19 WBC 6.5 RBC 3.80 Hgb 8.7 L Hct 27.0 L MCV 71 L MCH 22.8 L MCHC 32.1 RDW 17.5 H Plt Count 378 Sodium Cancelled Potassium Cancelled Chloride Cancelled Carbon Dioxide Cancelled Anion Gap Cancelled BUN Cancelled Creatinine Cancelled Est GFR ( Amer) Cancelled Est GFR (Non-Af Amer) Cancelled Glucose Cancelled Calcium Cancelled Urine Color STRAW Urine Appearance CLEAR Urine pH 7.0 Ur Specific [place] 1.009 Urine Protein NEGATIVE Urine Glucose (UA) 50 H Urine Ketones NEGATIVE Urine Blood NEGATIVE Urine Nitrite NEGATIVE Ur Leukocyte Esterase NEGATIVE Urine WBC (Auto) 1 Urine RBC (Auto) 0 08/09/19 10:00 WBC RBC Hgb Hct MCV MCH MCHC RDW Plt Count Sodium 137.1 Potassium 3.5 L Chloride 105 Carbon Dioxide 24 Anion Gap 8 BUN 16 Creatinine 0.73 Est GFR ( Amer) > 60 Est GFR (Non-Af Amer) Glucose 86 Calcium 8.4 Urine Color Urine Appearance Urine pH Ur Specific [place] Urine Protein Urine Glucose (UA) Urine Ketones Urine Blood Urine Nitrite Ur Leukocyte Esterase Urine WBC (Auto) Urine RBC (Auto) Assessment & Plan - Diagnosis (1) Lower GI bleed Is this a current diagnosis for this admission?: Yes (2) Essential (primary) hypertension Is this a current diagnosis for this admission?: Yes Plan: Continue present treatment (3) Anemia Qualifiers: Anemia type: iron deficiency Iron deficiency anemia type: chronic blood loss Qualified Code(s): D50.0 - Iron deficiency anemia secondary to blood loss (chronic) Is this a current diagnosis for this admission?: Yes Plan: Patient to receive iron infusion Injectafer 750 mg now to repeat in 7 days second dose - Time Time Spent with patient: 35 or more minutes Level of Care: MEDICAL
[2019-08-10] MEDS: HYDROMORPHONE HCL INJ/PF 2 MG/ML AMPULE IV PRN ×3 (05:21→23:38)
[2019-08-10] MEDS: NORMAL SALINE 1000 ML 1,000 ML IV PRN ×2 (05:22→23:43)
[2019-08-10] MEDS ORDERED: INFLUENZA QUAD (6MOS+) 2019-20 VAC 0.5 ML SYR IM ONE (07:28)
[2019-08-10] MEDS: LOSARTAN POTASSIUM 50 MG TABLET PO SCH ×2 (10:32→11:00)
[2019-08-10] MEDS: PANTOPRAZOLE SODIUM 40 MG TABLET.DR PO SCH ×3 (10:33→17:07)
[2019-08-10] MEDS: ESCITALOPRAM OXALATE 10 MG TABLET PO SCH ×2 (10:33→11:00)
[2019-08-10] MEDS: HYDROCHLOROTHIAZIDE 25 MG TABLET PO SCH ×2 (10:33→11:00)
[2019-08-10] MEDS ORDERED: PROPOFOL INJ 200 MG/20 ML VIAL IV ONE ×2 (11:49→12:37)
--- NOTE | 2019-08-10 12:51 | Operative Report ---
Operative Report DATE OF SURGERY: 08/10/19 Operative Report: The risk, benefits and alternatives of the procedure including the risk of bleeding, perforation requiring surgery have been explained to the patient in detail and informed consent has been obtained. Patient is placed in a left, lateral decubital position. Timeout was called. Propofol medication is administered. Rectal examination is done which did not reveal any masses, tears or fissures. An Olympus videoscope was introduced into the patient's rectum. Scope was then carefully advanced all the way to the cecum which seems identified by the usual anatomical landmarks including the ileocecal valve as well as the appendiceal office. Photodocumentation is obtained. Scope was then sequentially pulled back via the various segments of the colon including the ascending colon, back flexure, transverse colon, splenic flexure, descending colon finding to the rectosigmoid portions of the colon. Retroflexion maneuvers performed. The risks benefits and alternatives of the procedure explained to the patient in detail and informed consent is obtained.A GIF Olympus video scope was inserted into the patient's mouth and hypopharynx, the esophagus is identified intubated and insufflated,the scope was then advanced through the esophagus stomach and du odenum, retroflexion maneuver is done, the esophagus stomach and first and second portions of the duodenum examined PREOPERATIVE DIAGNOSIS: GI bleeding POSTOPERATIVE DIAGNOSIS: Right side colon inflammation status post biopsy. Rectal prolapse with some residual colonic inflammation/proctitis. Anastomotic ulcer clean base. Esophagitis OPERATION: colonoscopy with biopsy. EGD with biopsy SURGEON: CHANELL CERRATO ANESTHESIA: LMAC TISSUE REMOVED OR ALTERED: As noted above. COMPLICATIONS: none ESTIMATED BLOOD LOSS: None. INTRAOPERATIVE FINDINGS: As noted above. PROCEDURE: Patient tolerated the procedure well. No immediate postprocedure complications are noted. Patient is sent back to her room in good condition. Follow H&H. Advance diet slowly. Patient should be able to be discharged She once attention with regards to getting the rectal prolapse taken care of during this admission I will leave that to Dr. Mojica to decide Follow-up as outpatient
[2019-08-10] MEDS ORDERED: FENTANYL CITRATE INJ/PF 100 MCG/2 ML AMPUL ONE (13:32)
--- NOTE | 2019-08-10 19:01 | PDOC CONSULTATION ---
Consultation Consult Date: 08/10/19 Provider Consulted: SURGICAL SURGICALIST Consult reason:: rectal prolapse History of Present Illness Admission Date/PCP: 08/08/19 21:19 CHRISTY JONES MD History of Present Illness: SUDHIR ROBERTSON is a 64 year old female seen in consultation at the request of Dr. Jones. The patient is a long history of reducible rectal prolapse. The patient reports prolapsing of her rectum with bowel movements, that generally spontaneously reduces. Occasionally she will manually reduce the rectal prolapse. This is been occurring for many years. She believes that it is worsening. She has never had an episode where it becomes incarcerated. She denies any pain associated with the rectal prolapse. She denies a history of rectal trauma, traumatic vaginal (or any vaginal ), or significant hemorrhoidal disease. She does report intermittent rectal bleeding. She denies fevers, chills, nausea, vomiting, dizziness, orthostasis, headache, chest pain, shortness of breath, fatigue, malaise. Past Medical History Cardiac Medical History: Reports: Myocardial Infarction, Hyperlipidema, Hypertension Pulmonary Medical History: Reports: Asthma, Bronchitis, Pneumonia Neurological Medical History: GI Medical History: Reports: Gastroesophageal Reflux Disease Musculoskeltal Medical History: Reports: Arthritis Psychiatric Medical History: Reports: Depression Past Surgical History Past Surgical History: Reports: Appendectomy, Gastric Bypass Surgery, Mastectomy, Orthopedic Surgery - cervical laminectomy, Tonsillectomy Denies: Hysterectomy, Tubal Ligation Social History Smoking Status: Never Smoker Electronic Cigarette use?: No Frequency of Alcohol Use: Occasional Hx Recreational Drug Use: No Drugs: None Hx Prescription Drug Abuse: No - Advance Directive Resuscitation Status: Full Code Family History Family History: Reviewed & Not Pertinent, Malignancy - Mother had breast cancer and is from the disease Parental Family History Reviewed: Yes Children Family History Reviewed: Yes Sibling(s) Family History Reviewed.: Yes Medication/Allergy Home Medications: Dextroamphetamine/Amphetamine [Dextroamp-Amphetamin 30 mg Tab] 30 mg PO BID 08/09/19 Escitalopram Oxalate [Lexapro] 20 mg PO DAILY 08/09/19 Losartan/Hydrochlorothiazide [Losartan-Hctz 100-25 mg Tab] 1 each PO DAILY 08/09/19 Omeprazole 20 mg PO DAILY 08/09/19 Allergies/Adverse Reactions: No Known Allergies Allergy (Verified 10/23/16 13:12) Review of Systems Constitutional: ABSENT: anorexia, chills, fatigue Eyes: ABSENT: visual disturbances Ears: ABSENT: hearing changes Nose, Mouth, and Throat: ABSENT: mouth pain, sore throat Cardiovascular: ABSENT: chest pain Respiratory: ABSENT: cough, dyspnea Gastrointestinal: PRESENT: other - rectal prolapse. ABSENT: abdominal pain, bloating Genitourinary: ABSENT: dysuria Musculoskeletal: ABSENT: back pain Neurological: ABSENT: confusion, convulsions, dizziness Psychiatric: ABSENT: anxiety, depression Endocrine: ABSENT: cold intolerance, heat intolerance Hematologic/Lymphatic: ABSENT: easy bleeding, easy bruising Physical Exam Vital Signs: Temp Pulse Resp BP Pulse Ox 97.9 F 64 15 148/75 H 94 08/10/19 14:55 08/10/19 14:55 08/10/19 14:55 08/10/19 14:55 08/10/19 14:55 Intake & Output 08/09/19 08/10/19 08/11/19 06:59 06:59 06:59 Intake Total 100 3699 1575 Output Total 500 900 350 Balance -400 2799 1225 Weight 56.7 kg 62 kg General appearance: PRESENT: no acute distress, cooperative Head exam: PRESENT: atraumatic, normocephalic Eye exam: PRESENT: EOMI, PERRLA. ABSENT: scleral icterus Mouth exam: PRESENT: moist, neck supple Neck exam: ABSENT: meningismus, tenderness, thyromegaly, tracheal deviation Respiratory exam: PRESENT: unlabored. ABSENT: chest wall tenderness, tachypnea, wheezes Cardiovascular exam: ABSENT: tachycardia Pulses: PRESENT: normal radial pulses GI/Abdominal exam: PRESENT: soft. ABSENT: distended, guarding, tenderness Rectal exam: PRESENT: other - Decreased rectal tone. Circumferential rectal prolapse with Valsalva. No obvious hemorrhoidal disease. Extremities exam: ABSENT: clubbing Musculoskeletal exam: ABSENT: deformity Neurological exam: PRESENT: alert, awake, oriented to person, oriented to place, oriented to time, oriented to situation, CN II-XII grossly intact Psychiatric exam: ABSENT: agitated, anxious, depressed Focused psych exam: ABSENT: delusional Skin exam: ABSENT: cyanosis, erythema, jaundice Results Laboratory Results: 08/09/19 08:19 08/09/19 10:00 Assessment & Plan - Diagnosis (1) Rectal prolapse Is this a current diagnosis for this admission?: Yes - Plan Summary Plan Summary: This is a 64-year-old female with what appears to be full-thickness rectal prolapse. The experienced prolapse with Valsalva. She does usually have spontaneous reduction, although sometimes it requires manual reduction. At this time, the prolapse is reduced. I would not recommend any acute surgical intervention during this hospital admission. The patient is interested in pursuing repair/removal of her rectal prolapse. This can be a complicated process. It requires further work-up and testing. Anal manometry, De facography, and endorectal ultrasound are not available at our institution. I have recommended evaluation at a tertiary care center where these tests are available, under the care of a colorectal surgeon. The patient has requested a referral to [facility]. The patient should follow-up with my office after her acute illness has resolved, where a referral to [facility] will be placed. Surgery will sign off at this time. Please renotify with any questions or concerns.
--- NOTE | 2019-08-10 20:28 | PDOC PROGRESS REPORT ---
Subjective Progress Note for:: 08/10/19 Subjective:: Patient underwent EGD and colonoscopy today, she was found to have a rectal prolapse, Consultation was requested from surgery, she was seen by Dr. Dickens, he is not recommending any operative management at this time, he is suggesting management in a tertiary care she will be referred to Dr. Dickens's office on discharge from this admission.She received iron infusion yesterday Reason For Visit: GI BLEED Physical Exam Vital Signs: Temp Pulse Resp BP Pulse Ox 97.9 F 64 15 148/75 H 94 08/10/19 14:55 08/10/19 14:55 08/10/19 14:55 08/10/19 14:55 08/10/19 14:55 Intake & Output 08/09/19 08/10/19 08/11/19 06:59 06:59 06:59 Intake Total 100 3699 1575 Output Total 500 900 350 Balance -400 2799 1225 Weight 56.7 kg 62 kg General appearance: PRESENT: no acute distress Eye exam: PRESENT: PERRLA Respiratory exam: PRESENT: clear to auscultation rai Cardiovascular exam: PRESENT: +S1, +S2 GI/Abdominal exam: PRESENT: soft Neurological exam: PRESENT: alert Results Laboratory Results: 08/09/19 08:19 08/09/19 10:00 Assessment & Plan - Diagnosis (1) Lower GI bleed Is this a current diagnosis for this admission?: Yes Plan: She had EGD and colonoscopy done today, she has right-sided colitis, esophagitis, anastomotic ulcer and rectal prolapse (2) Essential (primary) hypertension Is this a current diagnosis for this admission?: Yes (3) Anemia Qualifiers: Anemia type: iron deficiency Iron deficiency anemia type: chronic blood loss Qualified Code(s): D50.0 - Iron deficiency anemia secondary to blood loss (chronic) Is this a current diagnosis for this admission?: Yes Plan: Status post iron infusion - Time Time Spent with patient: 35 or more minutes Level of Care: MEDICAL
[2019-08-11] MEDS: HYDROMORPHONE HCL INJ/PF 2 MG/ML AMPULE IV PRN ×3 (04:57→21:31)
[2019-08-11] MEDS: DIPHENHYDRAMINE HCL 50 MG/ML VIAL IV PRN ×3 (05:06→21:31)
[2019-08-11] MEDS: HYDROCHLOROTHIAZIDE 25 MG TABLET PO SCH (09:22)
[2019-08-11] MEDS: ESCITALOPRAM OXALATE 10 MG TABLET PO SCH (09:22)
[2019-08-11] MEDS: PANTOPRAZOLE SODIUM 40 MG TABLET.DR PO SCH ×2 (09:22→17:05)
[2019-08-11] MEDS: LOSARTAN POTASSIUM 50 MG TABLET PO SCH (09:22)
[2019-08-11 13:57] LABS: ABSOLUTE BASOPHILS # (AUTO) 0.1 10^3/uL (0.0-0.2); ABSOLUTE EOSINOPHILS # (AUTO) 0.3 10^3/uL (0.0-0.6); ABSOLUTE MONOCYTES (AUTO) 0.5 10^3/uL (0.1-1.4); BASOPHILS % (AUTO) 1.8 % (0-2); EOSINOPHILS % (AUTO) 4.8 % (0-6); HEMATOCRIT 24.7 % (36.0-47.0); LYMPHOCYTES % (AUTO) 16.4 % (13-45); MEAN CORPUSCULAR HEMOGLOBIN 22.8 pg (27.0-33.4); MEAN CORPUSCULAR HGB CONC 31.9 g/dL (32.0-36.0); MEAN CORPUSCULAR VOLUME 71 fl (80-97); MONOCYTES % (AUTO) 8.3 % (3-13); PLATELET COUNT 330 10^3/uL (150-450); RED BLOOD COUNT 3.46 10^6/uL (3.72-5.28); RED CELL DISTRIBUTION WIDTH 17.6 % (11.5-14.0); SEGMENTED NEUTROPHILS % (AUTO) 68.7 % (42-78); TOTAL CELLS COUNTED % (AUTO) 100 %; WHITE BLOOD COUNT 5.8 10^3/uL (4.0-10.5)
[2019-08-11 13:59] LABS: HEMOGLOBIN 7.9 g/dL (12.0-15.5)
[2019-08-11 14:28] LABS: TROPONIN I < 0.012 ng/mL
--- NOTE | 2019-08-11 19:45 | EKG REPORT ---
SEVERITY:- BORDERLINE ECG - SINUS RHYTHM BORDERLINE LEFT AXIS DEVIATION BORDERLINE PROLONGED QT INTERVAL OLD ANTEROSEPTAL IA : Confirmed by: Mike Soriano MD 11-Aug-2019 19:44:49
--- NOTE | 2019-08-11 20:32 | PDOC PROGRESS REPORT ---
Subjective Progress Note for:: 08/11/19 Subjective:: She has multiple complaints today, chest pain, skin rash, infestation with parasites Reason For Visit: GI BLEED Physical Exam Vital Signs: Temp Pulse Resp BP Pulse Ox 98.2 F 70 18 140/63 H 98 08/11/19 20:00 08/11/19 20:00 08/11/19 20:00 08/11/19 20:00 08/11/19 20:00 Intake & Output 08/10/19 08/11/19 08/12/19 06:59 06:59 06:59 Intake Total 3699 3405 1840 Output Total 900 1700 903 Balance 2799 1705 937 Weight 62 kg 59 kg General appearance: PRESENT: no acute distress Eye exam: PRESENT: PERRLA Respiratory exam: PRESENT: clear to auscultation rai Cardiovascular exam: PRESENT: +S1, +S2 Neurological exam: PRESENT: alert Results Laboratory Results: 08/11/19 13:46 08/09/19 10:00 08/11/19 13:46 WBC 5.8 RBC 3.46 L Hgb 7.9 L Hct 24.7 L MCV 71 L MCH 22.8 L MCHC 31.9 L RDW 17.6 H Plt Count 330 Seg Neutrophils % 68.7 08/11/19 08/11/19 13:46 13:46 Creatine Kinase 156 H CK-MB (CK-2) 3.40 Troponin I < 0.012 Assessment & Plan - Diagnosis (1) Lower GI bleed Is this a current diagnosis for this admission?: Yes (2) Essential (primary) hypertension Is this a current diagnosis for this admission?: Yes (3) Anemia Qualifiers: Anemia type: iron deficiency Iron deficiency anemia type: chronic blood loss Qualified Code(s): D50.0 - Iron deficiency anemia secondary to blood loss (chronic) Is this a current diagnosis for this admission?: Yes (4) Chest pain Qualifiers: Chest pain type: unspecified Qualified Code(s): R07.9 - Chest pain, unspecified Is this a current diagnosis for this admission?: Yes Plan: Scheduled for nuclear stress test, patient concerned about PACs and PVCs on the EKG that was reported to her she was reassured (5) Erythema Is this a current diagnosis for this admission?: Yes Plan: IgE level in serum (6) Rectal prolapse Is this a current diagnosis for this admission?: Yes Plan: Patient was seen by the surgeon, the notes reviewed surgery not recommended - Time Time Spent with patient: 35 or more minutes Level of Care: MEDICAL Medications reviewed and adjusted accordingly: Yes
--- NOTE | 2019-08-11 21:30 | RADIOLOGY REPORT (SQ) ---
CLINICAL INDICATION: deformity. Remote injury. TECHNIQUE: 3 view(s) were obtained of the right wrist. 3 view(s) were obtained of the left wrist. COMPARISON: None. FINDINGS: Right: A subacute impacted Colles' type fractures identified of the distal metaphysis. This demonstrates partial healing. Dorsal angulation. No significant dorsal displacement. Osteoarthritis. Injury to the ulnar styloid which also appears subacute with mild resorption. Soft tissue swelling. Left: No acute displaced fracture is identified of the wrist. Mild deformity is identified presumably from remote Colles' fracture. There is mild dorsal tilt. Fracture line is not visualized.. Osteoarthritis. Surrounding soft tissues are unremarkable. IMPRESSION: Subacute impacted Colles' fracture of the right wrist. This is partly healed with dorsal angulation but no dorsal displacement. Deformity of the left wrist from remote Colles' fracture..
[2019-08-11 22:09] LABS: CREATINE KINASE MB 2.45 ng/mL (<4.55); TROPONIN I 0.014 ng/mL
[2019-08-12] MEDS: DIPHENHYDRAMINE HCL 50 MG/ML VIAL IV PRN ×2 (01:43→20:19)
[2019-08-12] MEDS: HYDROMORPHONE HCL INJ/PF 2 MG/ML AMPULE IV PRN ×3 (06:08→20:19)
[2019-08-12 07:47] LABS: CREATINE KINASE MB 2.27 ng/mL (<4.55)
[2019-08-12 07:52] LABS: TROPONIN I < 0.012 ng/mL
[2019-08-12] MEDS: LOSARTAN POTASSIUM 50 MG TABLET PO SCH (10:54)
[2019-08-12] MEDS: HYDROCHLOROTHIAZIDE 25 MG TABLET PO SCH (10:54)
[2019-08-12] MEDS: ESCITALOPRAM OXALATE 10 MG TABLET PO SCH (10:54)
[2019-08-12] MEDS: PANTOPRAZOLE SODIUM 40 MG TABLET.DR PO SCH ×2 (10:55→17:09)
[2019-08-12] MEDS ORDERED: REGADENOSON INJ 0.4 MG/5 ML DISP.SYRIN IV ONE (11:35)
[2019-08-12] MEDS: NORMAL SALINE 1000 ML 1,000 ML IV PRN (18:36)
--- NOTE | 2019-08-12 20:21 | PDOC PROGRESS REPORT ---
Subjective Progress Note for:: 08/12/19 Subjective:: She had stress test today, it was normal spoke to orthopedic she will require surgery of the wrist, She has bilateral wrist fracture Reason For Visit: GI BLEED Physical Exam Vital Signs: Temp Pulse Resp BP Pulse Ox 98.2 F 63 16 144/61 H 96 08/12/19 16:01 08/12/19 16:01 08/12/19 16:01 08/12/19 16:01 08/12/19 16:01 Intake & Output 08/11/19 08/12/19 08/13/19 06:59 06:59 06:59 Intake Total 3405 2290 474 Output Total 1700 2203 Balance 1705 87 474 Weight 59 kg 58.3 kg General appearance: PRESENT: no acute distress Eye exam: PRESENT: PERRLA Respiratory exam: PRESENT: clear to auscultation rai Cardiovascular exam: PRESENT: +S1, +S2 GI/Abdominal exam: PRESENT: soft Neurological exam: PRESENT: alert Results Laboratory Results: 08/11/19 13:46 08/09/19 10:00 08/11/19 08/11/19 08/11/19 13:46 13:46 21:05 Creatine Kinase 156 H 124 CK-MB (CK-2) 3.40 Troponin I < 0.012 08/11/19 08/12/19 08/12/19 21:05 06:45 06:45 Creatine Kinase 92 CK-MB (CK-2) 2.45 2.27 Troponin I 0.014 < 0.012 Impressions: Hand/Wrist X-Ray 08/11/19 00:00 IMPRESSION: Subacute impacted Colles' fracture of the right wrist. This is partly healed with dorsal angulation but no dorsal displacement. Deformity of the left wrist from remote Colles' fracture.. Assessment & Plan - Diagnosis (1) Lower GI bleed Is this a current diagnosis for this admission?: Yes (2) Essential (primary) hypertension Is this a current diagnosis for this admission?: Yes (3) Anemia Qualifiers: Anemia type: iron deficiency Iron deficiency anemia type: chronic blood loss Qualified Code(s): D50.0 - Iron deficiency anemia secondary to blood loss (chronic) Is this a current diagnosis for this admission?: Yes (4) Chest pain Qualifiers: Chest pain type: unspecified Qualified Code(s): R07.9 - Chest pain, unspecified Is this a current diagnosis for this admission?: Yes Plan: Negative Cardiolite stress test (5) Erythema Is this a current diagnosis for this admission?: Yes (6) Rectal prolapse Is this a current diagnosis for this admission?: Yes (7) Colles' fracture of left radius, initial encounter for closed fracture Is this a current diagnosis for this admission?: Yes Plan: Orthopedic consultation requested (8) Colles' fracture of right radius, initial encounter for closed fracture Is this a current diagnosis for this admission?: Yes - Time Time Spent with patient: 15-24 minutes Level of Care: MEDICAL Medications reviewed and adjusted accordingly: Yes
[2019-08-13] MEDS: HYDROMORPHONE HCL INJ/PF 2 MG/ML AMPULE IV PRN ×4 (01:17→17:47)
[2019-08-13] MEDS: DIPHENHYDRAMINE HCL 50 MG/ML VIAL IV PRN ×4 (01:18→17:47)
[2019-08-13] MEDS: NORMAL SALINE 1000 ML 1,000 ML IV PRN (08:23)
[2019-08-13] MEDS: LOSARTAN POTASSIUM 50 MG TABLET PO SCH (10:02)
[2019-08-13] MEDS: ESCITALOPRAM OXALATE 10 MG TABLET PO SCH (10:02)
[2019-08-13] MEDS: PANTOPRAZOLE SODIUM 40 MG TABLET.DR PO SCH ×2 (10:03→17:05)
[2019-08-13] MEDS: HYDROCHLOROTHIAZIDE 25 MG TABLET PO SCH (10:03)
[2019-08-13] MEDS: ONDANSETRON HCL INJ/PF 4 MG/2 ML SDV IV PRN ×2 (11:58→18:02)
--- NOTE | 2019-08-13 16:29 | PDOC PROGRESS REPORT ---
Subjective Progress Note for:: 08/13/19 Subjective:: Patient seen at the bedside Reason For Visit: GI BLEED Physical Exam Vital Signs: Temp Pulse Resp BP Pulse Ox 97.8 F 79 18 169/76 H 93 08/13/19 12:00 08/13/19 14:00 08/13/19 12:00 08/13/19 12:00 08/13/19 12:00 Intake & Output 08/12/19 08/13/19 08/14/19 06:59 06:59 06:59 Intake Total 2290 714 965 Output Total 2203 Balance 87 714 965 Weight 58.3 kg 54.1 kg General appearance: PRESENT: no acute distress Eye exam: PRESENT: PERRLA Respiratory exam: PRESENT: clear to auscultation rai Cardiovascular exam: PRESENT: +S1, +S2 GI/Abdominal exam: PRESENT: soft Neurological exam: PRESENT: alert Results Laboratory Results: 08/11/19 13:46 08/09/19 10:00 08/11/19 18:00 Stool for White Cells NO WBCs SEEN 08/11/19 08/11/19 08/11/19 13:46 13:46 21:05 Creatine Kinase 156 H 124 CK-MB (CK-2) 3.40 Troponin I < 0.012 08/11/19 08/12/19 08/12/19 21:05 06:45 06:45 Creatine Kinase 92 CK-MB (CK-2) 2.45 2.27 Troponin I 0.014 < 0.012 Impressions: Hand/Wrist X-Ray 08/11/19 00:00 IMPRESSION: Subacute impacted Colles' fracture of the right wrist. This is partly healed with dorsal angulation but no dorsal displacement. Deformity of the left wrist from remote Colles' fracture.. Assessment & Plan - Diagnosis (1) Lower GI bleed Is this a current diagnosis for this admission?: Yes (2) Essential (primary) hypertension Is this a current diagnosis for this admission?: Yes (3) Anemia Qualifiers: Anemia type: iron deficiency Iron deficiency anemia type: chronic blood loss Qualified Code(s): D50.0 - Iron deficiency anemia secondary to blood loss (chronic) Is this a current diagnosis for this admission?: Yes (4) Chest pain Qualifiers: Chest pain type: unspecified Qualified Code(s): R07.9 - Chest pain, unspecified Is this a current diagnosis for this admission?: Yes (5) Erythema Is this a current diagnosis for this admission?: Yes (6) Rectal prolapse Is this a current diagnosis for this admission?: Yes (7) Colles' fracture of left radius, initial encounter for closed fracture Is this a current diagnosis for this admission?: Yes (8) Colles' fracture of right radius, initial encounter for closed fracture Is this a current diagnosis for this admission?: Yes - Time Time Spent with patient: 15-24 minutes Level of Care: MEDICAL
--- NOTE | 2019-08-13 18:05 | PDOC CONSULTATION ---
Consultation Consult Date: 08/12/19 Provider Consulted: MAAME ALAN JR History of Present Illness Admission Date/PCP: 08/08/19 21:19 CHRISTY JONES MD History of Present Illness: SUDHIR ROBERTSON is a 64 year old female patient who has a history of frequent falls and bilateral wrist pain. She reports that she had multiple falls onto the left wrist and that her pain had somewhat subsided over the last few months but also had recent falls as of last week to her right wrist with subsequent deformity and pain. I have had a conversation with Dr. Jones and the nursing staff know her well and explained that she is relatively noncompliant and does not take responsibility for medical care and has not performed her follow-ups as requested. She reports right wrist pain especially over the last week more than left with deformity, swelling, aching pain that is 7 out of 10, worse with activity and weight lifting, improved with rest and [id number] pain medication. Past Medical History Cardiac Medical History: Reports: Myocardial Infarction, Hyperlipidema, Hyper tension Pulmonary Medical History: Reports: Asthma, Bronchitis, Pneumonia Neurological Medical History: GI Medical History: Reports: Gastroesophageal Reflux Disease Musculoskeltal Medical History: Reports: Arthritis Psychiatric Medical History: Reports: Depression Past Surgical History Past Surgical History: Reports: Appendectomy, Gastric Bypass Surgery, Ma stectomy, Orthopedic Surgery - cervical laminectomy, Tonsillectomy Denies: Hysterectomy, Tubal Ligation Social History Smoking Status: Never Smoker Electronic Cigarette use?: No Frequency of Alcohol Use: Occasional Hx Recreational Drug Use: No Drugs: None Hx Prescription Drug Abuse: No - Advance Directive Resuscitation Status: Full Code Family History Family History: Reviewed & Not Pertinent, Malignancy - Mother had breast cancer and is from the disease Parental Family History Reviewed: No Children Family History Reviewed: NA Sibling(s) Family History Reviewed.: NA Medication/Allergy Home Medications: Dextroamphetamine/Amphetamine [Dextroamp-Amphetamin 30 mg Tab] 30 mg PO BID 08/09/19 Escitalopram Oxalate [Lexapro] 20 mg PO DAILY 08/09/19 Losartan/Hydrochlorothiazide [Losartan-Hctz 100-25 mg Tab] 1 each PO DAILY Omeprazole 20 mg PO DAILY 08/09/19 Allergies/Adverse Reactions: No Known Allergies Allergy (Verified 10/23/16 13:12) Review of Systems Review of Systems: Constitutional: ABSENT: anorexia, chills, night sweats Cardiovascular: ABSENT: chest pain Respiratory: ABSENT: dyspnea Gastrointestinal: ABSENT: vomiting, present is bleeding rectally. Genitourinary: ABSENT: dysuria Integumentary: ABSENT: rash Neurological: ABSENT: confusion, memory loss, numbness Psychiatric: ABSENT: hallucinations Hematologic/Lymphatic: ABSENT: easy bleeding All negative as above aside from that reported in the HPI Physical Exam Vital Signs: Temp Pulse Resp BP Pulse Ox 97.4 F 75 12 139/60 H 96 08/13/19 16:00 08/13/19 16:00 08/13/19 16:00 08/13/19 16:00 08/13/19 16:00 Intake & Output 08/12/19 08/13/19 08/14/19 06:59 06:59 06:59 Intake Total 2290 714 965 Output Total 2203 Balance 87 714 965 Weight 58.3 kg 54.1 kg Physical Exam: General appearance: PRESENT: no acute distress, cooperative, well-nourished Head exam: PRESENT: atraumatic, normocephalic Eye exam: PRESENT: EOMI Ear exam: PRESENT: normal external ear exam Mouth exam: PRESENT: neck supple Neck exam: ABSENT: tracheal deviation Respiratory exam: PRESENT: symmetrical, unlabored. ABSENT: accessory muscle use, wheezes Pulses: PRESENT: normal radial pulses, normal dorsalis pedis pulse Vascular exam: PRESENT: normal capillary refill GI/Abdominal exam: ABSENT: distended, firm Extremities exam: PRESENT: full ROM of bilateral shoulders, elbows wrists, knees, hips and ankles without pain Musculoskeletal exam: PRESENT: full ROM, normal inspection of all 4 extremities aside from that noted below. Neurological exam: PRESENT: alert, awake, oriented to person, oriented to place, oriented to time Psychiatric exam: PRESENT: appropriate affect. ABSENT: agitated Focused psych exam: ABSENT: catatonic Skin exam: PRESENT: intact. ABSENT: dry All as above aside from that noted in the HPI and the following: Right upper extremity Upper extremity sensation grossly intact to radial median and ulnar nerve. upper extremity motor function grossly intact to radian median ulnar nerve AIN and PIN Pulses 2+, capillary refill less than 2 seconds No deformity noted in the elbow or shoulder, there is deformity noted in the right distal radius with deviation radially and in a prominent ulna. Tenderness to palpation about the distal radius. Moderate swelling. Compartments soft, skin intact Left upper extremity Upper extremity sensation grossly intact to radial median and ulnar nerve. upper extremity motor function grossly intact to radian median ulnar nerve AIN and PIN Pulses 2+, capillary refill less than 2 seconds No deformity noted in the elbow or shoulder, no swelling no deformity noted to the distal radius. Some tenderness to range of motion. Mild tenderness to palpation. Compartments soft, skin intact Results Laboratory Results: 08/11/19 13:46 08/09/19 10:00 08/11/19 18:00 Stool for White Cells NO WBCs SEEN 08/11/19 08/11/19 08/11/19 13:46 13:46 21:05 Creatine Kinase 156 H 124 CK-MB (CK-2) 3.40 Troponin I < 0.012 08/11/19 08/12/19 08/12/19 21:05 06:45 06:45 Creatine Kinase 92 CK-MB (CK-2) 2.45 2.27 Troponin I 0.014 < 0.012 Impressions: Hand/Wrist X-Ray 08/11/19 00:00 IMPRESSION: Subacute impacted Colles' fracture of the right wrist. This is partly healed with dorsal angulation but no dorsal displacement. Deformity of the left wrist from remote Colles' fracture.. Assessment & Plan - Diagnosis (1) Colles' fracture of right radius, initial encounter for closed fracture Is this a current diagnosis for this admission?: Yes Plan: Patient has a distal radius fracture that is shortened and should be treated surgically. Given her noncompliance may be better to be done on an inpatient while she is still in house. We will plan for operative intervention on 08/14/2019 after she has had cardiac clearance Keep n.p.o. at midnight 08/13/2019 Ancef 2 g to be given preoperatively hold all chemical anticoagulation at midnight 08/13/2019 (2) Left wrist pain Is this a current diagnosis for this admission?: Yes Plan: On x-ray today there is evidence of an old left wrist injury however given her current exam and the x-ray findings there does not appear to be anything acute i n regards to a distal radius fracture or other wrist injury. Conservative management including rest ice heat and anti-inflammatories may be appropriate for her left wrist.
--- NOTE | 2019-08-13 23:21 | DRAGON STRESS TEST REPORT ---
Intravenous Lexiscan Cardiolite stress test using single photon emmision computerized tomography. Date of procedure: 08/12/2019 Ordering Provider: Dr. Mojica. Patient's status: In Patient. Indication: Chest pain. Coronary risk factors: Age, hypertension, diabetes mellitus, and dyslipidemia. Resting EKG: Sinus Rhythm. Within normal limits. Stress EKG: No changes of ischemia. Patient had no chest pain or discomfort, and there were no arrhythmias seen. Reason for termination: Protocol. Conclusions: Normal EKG and hemodynamic response to IV Lexiscan. Nuclear data: At rest the patient was given 9.86 millicuries of technetium 99m sestamibi injected intravenously. As per protocol rest non gated SPECT images were obtained. Subsequently the patient was given intravenous Lexiscan at a dose of 0.4 mg in 5 mL intravenously, followed by flush with normal saline. Subsequently the stress dose of 32.6 millicuries of technetium 99m sestamibi was injected intravenously. As per protocol stress gated images were obtained. Nuclear interpretation: Review of images showed that all segments of the myocardium had normal perfusion at rest, and normal perfusion post stress with IV Lexiscan. All segments of the myocardium had normal motion, contraction, and thickening by gated study. T. I D. ratio was normal at 1.05. There is no transient ischemic dilatation of the left ventricle. Computer read rest, and stress left ventricular ejection fraction were 53 %, and 57 %, respectively. Visually both the stress and rest ejection fractions were normal, and greater than 55%. Conclusion: 1. There is no scintigraphic evidence of Lexiscan induced myocardial ischemia. 2. There is no scintigraphic evidence of myocardial infarction/scar. Recommendations: Aggressive risk factor modification, and treating the underlying co- morbidities. [facility]
[2019-08-14] MEDS: NORMAL SALINE 1000 ML 1,000 ML IV PRN (00:35)
[2019-08-14] MEDS: HYDROMORPHONE HCL INJ/PF 2 MG/ML AMPULE IV PRN ×4 (02:56→22:18)
[2019-08-14] MEDS: DIPHENHYDRAMINE HCL 50 MG/ML VIAL IV PRN ×4 (02:56→22:18)
[2019-08-14 03:18] LABS: APPEARANCE,URINE SLIGHTLY-CLOUDY; BILIRUBIN,URINE NEGATIVE (NEGATIVE); COLOR,URINE YELLOW; GLUCOSE, URINE NEGATIVE (NEGATIVE); KETONES,URINE NEGATIVE (NEGATIVE); LEUKOCYTE ESTERASE,URINE NEGATIVE (NEGATIVE); NITRITE,URINE POSITIVE (NEGATIVE); PROTEIN,URINE NEGATIVE (NEGATIVE); UROBILINOGEN,URINE NEGATIVE mg/dL (<2.0)
[2019-08-14] MEDS ORDERED: CEFAZOLIN INJ 1 GM VIAL IV ONE (08:02)
[2019-08-14 08:42] LABS: ABSOLUTE BASOPHILS # (AUTO) 0.1 10^3/uL (0.0-0.2); ABSOLUTE EOSINOPHILS # (AUTO) 0.4 10^3/uL (0.0-0.6); ABSOLUTE LYMPHOCYTES (AUTO) 1.4 10^3/uL (0.5-4.7); ABSOLUTE MONOCYTES (AUTO) 0.6 10^3/uL (0.1-1.4); ABSOLUTE NEUT (AUTO) 4.1 10^3/uL (1.7-8.2); BASOPHILS % (AUTO) 1.6 % (0-2); EOSINOPHILS % (AUTO) 6.5 % (0-6); HEMATOCRIT 28.6 % (36.0-47.0); HEMOGLOBIN 9.2 g/dL (12.0-15.5); LYMPHOCYTES % (AUTO) 21.1 % (13-45); MEAN CORPUSCULAR HEMOGLOBIN 23.5 pg (27.0-33.4); MEAN CORPUSCULAR HGB CONC 32.3 g/dL (32.0-36.0); MEAN CORPUSCULAR VOLUME 73 fl (80-97); MONOCYTES % (AUTO) 9.5 % (3-13); PLATELET COUNT 423 10^3/uL (150-450); RED BLOOD COUNT 3.94 10^6/uL (3.72-5.28); RED CELL DISTRIBUTION WIDTH 17.8 % (11.5-14.0); SEGMENTED NEUTROPHILS % (AUTO) 61.3 % (42-78); TOTAL CELLS COUNTED % (AUTO) 100 %; WHITE BLOOD COUNT 6.7 10^3/uL (4.0-10.5)
[2019-08-14] MEDS ORDERED: DOCUSATE SODIUM 100 MG CAPSULE PO PRN (08:56)
[2019-08-14] MEDS: CEFAZOLIN SODIUM 2 GM in DEXTROSE 5%-WATER 100 ML IV ONE ×2 (08:59→12:01)
[2019-08-14] MEDS: PANTOPRAZOLE SODIUM 40 MG TABLET.DR PO SCH ×2 (09:03→18:00)
[2019-08-14] MEDS: ESCITALOPRAM OXALATE 10 MG TABLET PO SCH (09:03)
[2019-08-14] MEDS: LOSARTAN POTASSIUM 50 MG TABLET PO SCH (09:03)
[2019-08-14] MEDS ORDERED: LIDOCAINE 2% INJ (20 MG/ML) 20 ML MDV ONE (09:15)
[2019-08-14] MEDS ORDERED: ROPIVACAINE HCL 0.5% INJ/PF (5 MG/1 ML) 30 ML SDV ONE (09:15)
[2019-08-14] MEDS ORDERED: LIDOCAINE 1%/EPINEPHRINE INJ 20 ML VIAL ONE (09:16)
[2019-08-14] MEDS ORDERED: DEXAMETHASONE SOD PHOS INJ 10 MG/1 ML VIAL ONE (09:38)
[2019-08-14] MEDS ORDERED: DIPHENHYDRAMINE HCL 50 MG/ML VIAL ONE (09:55)
[2019-08-14] MEDS ORDERED: MIDAZOLAM 2 MG/2 ML INJ ONE (09:55)
[2019-08-14] MEDS ORDERED: FENTANYL CITRATE INJ/PF 100 MCG/2 ML AMPUL ONE (09:55)
[2019-08-14] MEDS ORDERED: PROPOFOL INJ 200 MG/20 ML VIAL IV ONE (09:56)
[2019-08-14] MEDS ORDERED: BUPIVACAINE HCL 0.25 % INJ/PF (2.5 MG/1 ML) 30 ML VIAL ONE (10:19)
[2019-08-14] MEDS ORDERED: PROMETHAZINE HCL INJ 25 MG/1 ML VIAL IV PRN (10:51)
[2019-08-14] MEDS ORDERED: FENTANYL CITRATE INJ/PF 100 MCG/2 ML AMPUL IV PRN ×3 (10:51)
--- NOTE | 2019-08-14 12:20 | Operative Report ---
Operative Report DATE OF SURGERY: 08/14/19 PREOPERATIVE DIAGNOSIS: Right distal radius fracture, subacute POSTOPERATIVE DIAGNOSIS: Right distal radius fracture with malunion OPERATION: Right distal radius malunion takedown, subsequent open reduction internal fixation SURGEON: MAAME ALAN JR ANESTHESIA: Moderate Sedation COMPLICATIONS: None PROCEDURE: Patient is a 64-year-old female who was evaluated for a recent distal radius fracture. She reports multiple falls due to potentially anemia or syncopal episodes the past few months. She reports multiple injuries to both wrists. Her most recent fall was a week ago at which time she reported increased appearance of deformity but is not sure if that was the actual injury for fracture or if maybe it was a month ago. I explained to her that her x-rays appeared to demonstrate a potential subacute fracture with subsequent healing and that there was some potential for us to do a simple open reduction internal fixation versus having to take down the malunion. After discussing risks and benefits the patient agreed to operative intervention for her right wrist due to deformity and continued pain and dysfunction. The patient was brought to the operating suite. Prior to arriving she had received a axillary nerve block. She was then placed under moderate sedation and the left upper extremity was prepped and draped in sterile sterile fashion. Preoperatively she was given 2 g of Ancef. A timeout was performed and the site was marked and an Esmarch was used to place the patient under tourniquet. An incision was made in a FCR approach to the distal radius was performed. Upon exposing the fracture site there was apparent callus formation and no instability at the fracture site. Inspection of the fracture site revealed that it was likely a old fracture that has undergone considerable amount of healing. Due to this we had to take down the callus and mobilize the fracture. This was done with a rondure followed by multiple pin sites with a K wire and then a [place] elevator followed by a small osteotome. After mobilizing the fracture we were able to achieve length by carefully releasing the brachial radialis. We then placed a K wire from the radial styloid across the fracture site in order to obtain provisional reduction. Fluoroscopy was used to evaluate our reduction throughout this procedure. This allowed some continued mobilization and we perales open the fracture in order to place demineralized bone graft putty. After this a second K wire was placed to ensure length and appropriate tilt. We then approximated a plate to the distal radius in a fashion to attempt to use the plate to further reduce. An olive wire was used to hold the plate to the distal fragment followed by 2 nonlocking screws in the distal row followed by locking screws in the final screw holes and then exchanging the nonlocking screw to a locking screw. We then placed a screw into the proximal aspect of the oblong hole and pulled traction to achieve full length. The K wires were then removed. The screw was tightened followed by placement of other screws in the shaft. The final empty distal screws holes received locking screws. Final x-rays were then taken. Remaining demineralized bone matrix was then packed into the accessible void to fill it as much as possible. The wound was copiously i rrigated with saline solution. A 3-0 Vicryl was then used subcutaneously for closure. A running horizontal mattress type III 0 nylon was then used in the skin. Xeroform was placed followed by sterile dressing and a volar splint. The patient was then awakened from anesthesia and transferred to the PACU in stable condition.
--- NOTE | 2019-08-14 12:51 | RADIOLOGY REPORT (SQ) ---
EXAM DESCRIPTION: WRIST RIGHT 2 VIEWS; NO CHG FLUORO IMAGES COMPLETED DATE/TIME: 08/14/2019 12:39 pm REASON FOR STUDY: OR COMPARISON: Bilateral wrist films 08/11/2019 FLUOROSCOPY TIME: 17 seconds 5 digital fluoroscopic images saved to PACS. TECHNIQUE: Intra-operative images acquired during surgical procedure to evaluate progress. NUMBER OF IMAGES: 5 digital fluoroscopic images LIMITATIONS: None. FINDINGS: Serial progress C-arm images during ORIF distal right radius fracture with fixation plate and multiple screws. Good alignment. Please see the operative report for further comments IMPRESSION: Intra procedural imaging fluoro COMMENT: Quality ID [id number]: Final reports for procedures using fluoroscopy that document radiation exp osure indices, or exposure time and number of fluorographic images (if radiation exposure indices are not available) Please consult full operative report of the attending physician for description of the procedure. TECHNICAL DOCUMENTATION: JOB ID: [id number] 2010 [employer]- All Rights Reserved Reading location - IP/workstation name: [email or web address]
--- NOTE | 2019-08-14 12:51 | RADIOLOGY REPORT (SQ) ---
EXAM DESCRIPTION: WRIST RIGHT 2 VIEWS; NO CHG FLUORO IMAGES COMPLETED DATE/TIME: 08/14/2019 12:39 pm REASON FOR STUDY: OR COMPARISON: Bilateral wrist films 08/11/2019 FLUOROSCOPY TIME: 17 seconds 5 digital fluoroscopic images saved to PACS. TECHNIQUE: Intra-operative images acquired during surgical procedure to evaluate progress. NUMBER OF IMAGES: 5 digital fluoroscopic images LIMITATIONS: None. FINDINGS: Serial progress C-arm images during ORIF distal right radius fracture with fixation plate and multiple screws. Good alignment. Please see the operative report for further comments IMPRESSION: Intra procedural imaging fluoro COMMENT: Quality ID [id number]: Final reports for procedures using fluoroscopy that document radiation exp osure indices, or exposure time and number of fluorographic images (if radiation exposure indices are not available) Please consult full operative report of the attending physician for description of the procedure. TECHNICAL DOCUMENTATION: JOB ID: [id number] 2010 [employer]- All Rights Reserved Reading location - IP/workstation name: [email or web address]
[2019-08-14] MEDS: HYDROCHLOROTHIAZIDE 25 MG TABLET PO SCH (13:09)
--- NOTE | 2019-08-14 13:36 | RADIOLOGY REPORT (SQ) ---
EXAM DESCRIPTION: WRIST RIGHT 3 VIEWS IMAGES COMPLETED DATE/TIME: 08/14/2019 12:51 pm REASON FOR STUDY: post op COMPARISON: 08/14/2019 intraoperative imaging. FINDINGS: 3 images show open reduction internal fixation of fracture. Generally normal alignment although there is persistent dorsal displaced fragment. This may include a portion of the articular surface. TECHNICAL DOCUMENTATION: JOB ID: [id number] Reading location - IP/workstation name: [email or web address]
[2019-08-14] MEDS: ONDANSETRON HCL INJ/PF 4 MG/2 ML SDV IV PRN ×2 (13:54→19:36)
--- NOTE | 2019-08-14 14:31 | PDOC PROGRESS REPORT ---
Subjective Progress Note for:: 08/14/19 Subjective:: Patient seen by the bedside, she had right distal radius malunion takedown with subsequent open reduction internal fixation done today by the orthopedic surgeon Dr. Cody Reason For Visit: GI BLEED Physical Exam Vital Signs: Temp Pulse Resp BP Pulse Ox 98.3 F 74 20 186/83 H 100 08/14/19 14:00 08/14/19 14:00 08/14/19 14:00 08/14/19 14:00 08/14/19 14:00 Intake & Output 08/13/19 08/14/19 08/15/19 06:59 06:59 06:59 Intake Total 714 3465 1600 Output Total 600 750 Balance 714 2865 850 Weight 54.1 kg General appearance: PRESENT: no acute distress Eye exam: PRESENT: PERRLA Respiratory exam: PRESENT: clear to auscultation rai Cardiovascular exam: PRESENT: +S1, +S2 GI/Abdominal exam: PRESENT: soft Neurological exam: PRESENT: alert Results Laboratory Results: 08/14/19 08:35 08/09/19 10:00 08/14/19 08/14/19 02:50 08:35 WBC 6.7 RBC 3.94 Hgb 9.2 L Hct 28.6 L MCV 73 L MCH 23.5 L MCHC 32.3 RDW 17.8 H Plt Count 423 Seg Neutrophils % 61.3 Urine Color YELLOW Urine Appearance SLIGHTLY-CLOUDY Urine pH 7.0 Ur Specific [place] 1.010 Urine Protein NEGATIVE Urine Glucose (UA) NEGATIVE Urine Ketones NEGATIVE Urine Blood NEGATIVE Urine Nitrite POSITIVE H Ur Leukocyte Esterase NEGATIVE Urine WBC (Auto) 1 Urine RBC (Auto) 0 08/11/19 08/11/19 08/11/19 13:46 13:46 21:05 Creatine Kinase 156 H 124 CK-MB (CK-2) 3.40 Troponin I < 0.012 08/11/19 08/12/19 08/12/19 21:05 06:45 06:45 Creatine Kinase 92 CK-MB (CK-2) 2.45 2.27 Troponin I 0.014 < 0.012 Impressions: Hand/Wrist X-Ray 08/11/19 00:00 IMPRESSION: Subacute impacted Colles' fracture of the right wrist. This is partly healed with dorsal angulation but no dorsal displacement. Deformity of the left wrist from remote Colles' fracture.. Fluoroscopy 03/29/20 00:00 IMPRESSION: Intra procedural imaging fluoro Assessment & Plan - Diagnosis (1) Lower GI bleed Is this a current diagnosis for this admission?: Yes (2) Essential (primary) hypertension Is this a current diagnosis for this admission?: Yes (3) Anemia Qualifiers: Anemia type: iron deficiency Iron deficiency anemia type: chronic blood loss Qualified Code(s): D50.0 - Iron deficiency anemia secondary to blood loss (chronic) Is this a current diagnosis for this admission?: Yes (4) Chest pain Qualifiers: Chest pain type: unspecified Qualified Code(s): R07.9 - Chest pain, un specified Is this a current diagnosis for this admission?: Yes (5) Erythema Is this a current diagnosis for this admission?: Yes (6) Rectal prolapse Is this a current diagnosis for this admission?: Yes (7) Colles' fracture of left radius, initial encounter for closed fracture Is this a current diagnosis for this admission?: Yes (8) Colles' fracture of right radius, initial encounter for closed fracture Is this a current diagnosis for this admission?: Yes Plan: Status post open reduction and internal fixation of the right radius fracture - Time Time Spent with patient: 15-24 minutes Level of Care: MEDICAL
[2019-08-14] MEDS ORDERED: KETOROLAC TROMETHAMINE INJ/PF 30 MG/1 ML SDV ONE (15:44)
[2019-08-14] MEDS ORDERED: ACETAMINOPHEN 325 MG TABLET PO ONE (17:30)
[2019-08-14] MEDS: KETOROLAC TROMETHAMINE INJ/PF 30 MG/1 ML SDV IV SCH ×2 (17:48→23:25)
[2019-08-14] MEDS: LABETALOL HCL INJ 20 MG/4 ML DISP.SYRIN IV PRN (18:10)
[2019-08-14] MEDS: OXYCODONE HCL IR 5 MG TABLET PO PRN ×2 (19:35→23:28)
[2019-08-14] MEDS: CEFAZOLIN 2 GM/D5W RTU 2 GM/50 ML RTUPB IV SCH (19:36)
[2019-08-14] MEDS: ACETAMINOPHEN 325 MG TABLET PO SCH (22:18)
[2019-08-15] MEDS: CEFAZOLIN 2 GM/D5W RTU 2 GM/50 ML RTUPB IV SCH (03:55)
[2019-08-15] MEDS: NORMAL SALINE 1000 ML 1,000 ML IV PRN ×2 (03:55→19:56)
[2019-08-15] MEDS: DIPHENHYDRAMINE HCL 50 MG/ML VIAL IV PRN ×2 (04:27→18:02)
[2019-08-15] MEDS: HYDROMORPHONE HCL INJ/PF 2 MG/ML AMPULE IV PRN ×2 (04:28→18:01)
[2019-08-15] MEDS: KETOROLAC TROMETHAMINE INJ/PF 30 MG/1 ML SDV IV SCH (05:59)
[2019-08-15] MEDS: ACETAMINOPHEN 325 MG TABLET PO SCH ×3 (06:00→22:47)
--- NOTE | 2019-08-15 09:39 | PDOC PROGRESS REPORT ---
Subjective Progress Note for:: 08/15/19 Subjective:: Patient is doing well today. She does report some ache from surgery but she understands that this is to be expected. She has no new signs or symptoms in the right wrist aside from aching and pain. No paresthesia or overt tightness from the splint. Reason For Visit: GI BLEED Physical Exam Vital Signs: Temp Pulse Resp BP Pulse Ox 97.7 F 68 16 142/49 H 95 08/15/19 07:32 08/15/19 07:32 08/15/19 07:32 08/15/19 07:32 08/15/19 07:32 Intake & Output 08/14/19 08/15/19 08/16/19 06:59 06:59 06:59 Intake Total 3465 4620 Output Total 600 2150 Balance 2865 2470 Weight 51.2 kg Physical Exam: General appearance: PRESENT: no acute distress, cooperative, well-nourished Head exam: PRESENT: atraumatic, normocephalic Eye exam: PRESENT: EOMI Ear exam: PRESENT: normal external ear exam Mouth exam: PRESENT: neck supple Neck exam: ABSENT: tracheal deviation Respiratory exam: PRESENT: symmetrical, unlabored. ABSENT: accessory muscle use, wheezes Pulses: PRESENT: normal radial pulses, normal dorsalis pedis pulse Vascular exam: PRESENT: normal capillary refill GI/Abdominal exam: ABSENT: distended, firm Extremities exam: PRESENT: full ROM of bilateral shoulders, elbows wrists, knees, hips and ankles without pain Musculoskeletal exam: PRESENT: full ROM, normal inspection of all 4 extremities aside from that noted below. Neurological exam: PRESENT: alert, awake, oriented to person, oriented to place, oriented to time Psychiatric exam: PRESENT: appropriate affect. ABSENT: agitated Focused psych exam: ABSENT: catatonic Skin exam: PRESENT: intact. ABSENT: dry All as above aside from that noted in the HPI and the following: Right upper extremity is currently in a splint. There is no overt constriction appreciated from the splint, some mild finger swelling. Sensation is grossly intact to AIN PIN radial median ulnar nerve, motor function is grossly intact. Capillary refill is less than 2 seconds. There is no spotting or bleeding through the splint, it is clean dry and intact. Left upper extremity Wrist nontender to palpation full range of motion grossly neurovascular intact Left shoulder full passive range of motion. Active range of motion 220 degrees of abduction 110 degrees of forward flexion with pain past this point. Positive Neer's test Results Laboratory Results: 08/14/19 08:35 08/09/19 10:00 08/11/19 08/11/19 08/11/19 13:46 13:46 21:05 Creatine Kinase 156 H 124 CK-MB (CK-2) 3.40 Troponin I < 0.012 08/11/19 08/12/19 08/12/19 21:05 06:45 06:45 Creatine Kinase 92 CK-MB (CK-2) 2.45 2.27 Troponin I 0.014 < 0.012 Impressions: Hand/Wrist X-Ray 08/11/19 00:00 IMPRESSION: Subacute impacted Colles' fracture of the right wrist. This is partly healed with dorsal angulation but no dorsal displacement. Deformity of the left wrist from remote Colles' fracture.. Fluoroscopy 08/14/19 00:00 IMPRESSION: Intra procedural imaging fluoro Assessment & Plan - Diagnosis (1) Colles' fracture of right radius, initial encounter for closed fracture Is this a current diagnosis for this admission?: Yes Plan: Postop day 1 status post right distal radius open reduction internal fixation with osteo-clysis of malunion. She is doing very well but needs to remain nonweightbearing right upper extremity and maintain her splint till seen in the office. At that time that she will get a cast 24 hours of postoperative antibiotics Encourage finger range of motion with physical therapy and Occupational Therapy, this can happen in a delayed fashion but may benefit from an evaluation in house. (2) Left wrist pain Is this a current diagnosis for this admission?: Yes (3) Left rotator cuff tear Is this a current diagnosis for this admission?: Yes Plan: She has been complaining about her left shoulder and her difficulty with abduction over the last 2 days. While in house she may benefit from obtaining an MRI for further review. When she referred reports is consistent with rotator cuff tear as she is having difficulty with abduction of the left shoulder. - Time Time Spent with patient: 15-24 minutes
[2019-08-15] MEDS ORDERED: LORAZEPAM 1 MG TABLET PO ONE (10:30)
[2019-08-15] MEDS: HYDROCHLOROTHIAZIDE 25 MG TABLET PO SCH (11:23)
[2019-08-15] MEDS: LOSARTAN POTASSIUM 50 MG TABLET PO SCH (11:23)
[2019-08-15] MEDS: ESCITALOPRAM OXALATE 10 MG TABLET PO SCH (11:24)
[2019-08-15] MEDS: PANTOPRAZOLE SODIUM 40 MG TABLET.DR PO SCH ×2 (11:24→17:19)
[2019-08-15] MEDS: OXYCODONE HCL IR 5 MG TABLET PO PRN ×2 (13:19→22:46)
--- NOTE | 2019-08-15 13:38 | RADIOLOGY REPORT (SQ) ---
EXAM DESCRIPTION: MRI LT UPPER JOINT WITHOUT IMAGES COMPLETED DATE/TIME: 08/15/2019 1:17 pm REASON FOR STUDY: Left rotator cuff tear COMPARISON: None. TECHNIQUE: Left shoulder images acquired and stored on PACS. Multiplanar imaging to include fat sens itive sequences such as T1, water sensitive sequences such as FST2/STIR, cartilage sensitive sequence s such as FSPD/gradient-echo sequences. LIMITATIONS: Motion artifact. FINDINGS: BONE MARROW AND CORTEX: No worrisome bone lesions or marrow replacement. No occult fractur es. JOINT OR BURSAL EFFUSION: No significant joint or bursal fluid. No suggestion of loose bodies. GLENO-HUMERAL ARTICULATION: Intact. Small humeral head osteophytes. ACROMION AND AC JOINT: Type 2 acromion. Mild AC joint arthropathy. ROTATOR CUFF AND INTERVAL: Mild fatty replacement infraspinatus. Small rim rent tear anterior supras pinatus. No full-thickness tear. No rotator interval tear. No rotator interval thickening to suggest adhesive capsulitis. LABRUM AND BICEPS LABRAL COMPLEX: Intact as visualized. REMAINDER OF LABRUM AND IGHL : Intact. PERIARTICULAR AND ADJACENT SOFT TISSUES: No masses or abnormal nodes. OTHER: No other significant finding. IMPRESSION: 1. Limitations due to motion artifact. Rim rent tear of the supraspinatus. No full-thickness tear. 2. AC and glenohumeral joint arthropathy. TECHNICAL DOCUMENTATION: JOB ID: [id number] 2010 [employer]- All Rights Reserved Reading location - IP/workstation name: [email or web address]
[2019-08-15] MEDS: ONDANSETRON HCL INJ/PF 4 MG/2 ML SDV IV PRN (17:51)
[2019-08-15] MEDS: LABETALOL HCL INJ 20 MG/4 ML DISP.SYRIN IV PRN (19:48)
--- NOTE | 2019-08-15 21:10 | PDOC PROGRESS REPORT ---
Subjective Progress Note for:: 08/15/19 Subjective:: Patient seen by the bedside, Complain of pain Reason For Visit: GI BLEED Physical Exam Vital Signs: Temp Pulse Resp BP Pulse Ox 97.3 F 64 16 178/63 H 97 08/15/19 19:17 08/15/19 19:17 08/15/19 19:17 08/15/19 19:17 08/15/19 19:17 Intake & Output 08/14/19 08/15/19 08/16/19 06:59 06:59 06:59 Intake Total 3465 4620 1060 Output Total 600 2150 Balance 2865 2470 1060 Weight 51.2 kg 51.2 kg General appearance: PRESENT: no acute distress Eye exam: PRESENT: PERRLA Respiratory exam: PRESENT: clear to auscultation rai Cardiovascular exam: PRESENT: +S1, +S2 GI/Abdominal exam: PRESENT: soft Neurological exam: PRESENT: alert Results Laboratory Results: 08/14/19 08:35 08/09/19 10:00 08/12/19 18:00 Stool - Stool - Final 08/12/19 18:00 Stool - Stool Stool Culture - Final NO SALMONELLA, SHIGELLA, CAMPYLOBACTER, OR E.COLI 0157 RECOVERED. NEGATIVE FOR SHIGA TOXINS 1&2. 08/11/19 08/11/19 08/11/19 13:46 13:46 21:05 Creatine Kinase 156 H 124 CK-MB (CK-2) 3.40 Troponin I < 0.012 08/11/19 08/12/19 08/12/19 21:05 06:45 06:45 Creatine Kinase 92 CK-MB (CK-2) 2.45 2.27 Troponin I 0.014 < 0.012 Impressions: Hand/Wrist X-Ray 08/11/19 00:00 IMPRESSION: Subacute impacted Colles' fracture of the right wrist. This is partly healed with dorsal angulation but no dorsal displacement. Deformity of the left wrist from remote Colles' fracture.. Fluoroscopy 08/14/19 00:00 IMPRESSION: Intra procedural imaging fluoro Upper Extremity MRI 08/15/19 00:00 IMPRESSION: 1. Limitations due to motion artifact. Rim rent tear of the supraspinatus. No full-thickness tear. 2. AC and glenohumeral joint arthropathy. Assessment & Plan - Diagnosis (1) Lower GI bleed Is this a current diagnosis for this admission?: Yes (2) Essential (primary) hypertension Is this a current diagnosis for this admission?: Yes (3) Anemia Qualifiers: Anemia type: iron deficiency Iron deficiency anemia type: chronic blood loss Qualified Code(s): D50.0 - Iron deficiency anemia secondary to blood loss (chronic) Is this a current diagnosis for this admission?: Yes (4) Chest pain Qualifiers: Chest pain type: unspecified Qualified Code(s): R07.9 - Chest pain, unspecified Is this a current diagnosis for this admission?: Yes (5) Erythema Is this a current diagnosis for this admission?: Yes (6) Rectal prolapse Is this a current diagnosis for this admission?: Yes (7) Colles' fracture of left radius, initial encounter for closed fracture Is this a current diagnosis for this admission?: Yes (8) Colles' fracture of right radius, initial encounter for closed fracture Is this a current diagnosis for this admission?: Yes Plan: Postop day 1 status post right distal radius open reduction internal fixation with osteo-clysis of malunion. She is doing very well but needs to remain nonweightbearing right upper extremity and maintain her splint till seen in the office. At that time that she will get a cast 24 hours of postoperative antibiotics Encourage finger range of motion with physical therapy and Occupational Therapy, this can happen in a delayed fashion but may benefit from an evaluation in ho use. - Time Time Spent with patient: 25-34 minutes Level of Care: MEDICAL
--- NOTE | 2019-08-15 21:36 | PDOC DISCHARGE SUMMARY ---
Impression - Admit/DC Date/PCP Admission Date/Primary Care Provider: 08/08/19 21:19 CHRISTY JONES MD Discharge Date: 08/16/19 - Discharge Diagnosis (1) Lower GI bleed Is this a current diagnosis for this admission?: Yes (2) Essential (primary) hypertension Is this a current diagnosis for this admission?: Yes (3) Anemia Is this a current diagnosis for this admission?: Yes (4) Chest pain Is this a current diagnosis for this admission?: Yes (5) Erythema Is this a current diagnosis for this admission?: Yes (6) Rectal prolapse Is this a current diagnosis for this admission?: Yes (7) Colles' fracture of left radius, initial encounter for closed fracture Is this a current diagnosis for this admission?: Yes (8) Colles' fracture of right radius, initial encounter for closed fracture Is this a current diagnosis for this admission?: Yes - Additional Information Resuscitation Status: Full Code Referrals: CHANELL CERRATO MD [ACTIVE STAFF] - (BX RESULTS 2 WKS. OFFICE WILL CALL PATIENT.) CHRISTY JONES MD [Primary Care Provider] - Home Medications: Dextroamphetamine/Amphetamine [Dextroamp-Amphetamin 30 mg Tab] 30 mg PO BID 08/09/19 Escitalopram Oxalate [Lexapro] 20 mg PO DAILY 08/09/19 Losartan/Hydrochlorothiazide [Losartan-Hctz 100-25 mg Tab] 1 each PO DAILY 08/09/19 Omeprazole 20 mg PO DAILY 08/09/19 Physical Exam Vital Signs: Temp Pulse Resp BP Pulse Ox 97.3 F 64 16 178/63 H 97 08/15/19 19:17 08/15/19 19:17 08/15/19 19:17 08/15/19 19:17 08/15/19 19:17 Intake & Output 08/14/19 08/15/19 08/16/19 06:59 06:59 06:59 Intake Total 3465 4620 1060 Output Total 600 2150 Balance 2865 2470 1060 Weight 51.2 kg 51.2 kg Results Laboratory Results: WBC 6.7 10^3/uL (4.0-10.5) 08/14/19 08:35 RBC 3.94 10^6/uL (3.72-5.28) 08/14/19 08:35 Hgb 9.2 g/dL (12.0-15.5) L 08/14/19 08:35 Hct 28.6 % (36.0-47.0) L 08/14/19 08:35 MCV 73 fl (80-97) L 08/14/19 08:35 MCH 23.5 pg (27.0-33.4) L 08/14/19 08:35 MCHC 32.3 g/dL (32.0-36.0) 08/14/19 08:35 RDW 17.8 % (11.5-14.0) H 08/14/19 08:35 Plt Count 423 10^3/uL (150-450) 08/14/19 08:35 Lymph % (Auto) 21.1 % (13-45) 08/14/19 08:35 [place] % (Auto) 9.5 % (3-13) 08/14/19 08:35 Eos % (Auto) 6.5 % (0-6) H 08/14/19 08:35 Baso % (Auto) 1.6 % (0-2) 08/14/19 08:35 Absolute Neuts (auto) 4.1 10^3/uL (1.7-8.2) 08/14/19 08:35 Absolute Lymphs (auto) 1.4 10^3/uL (0.5-4.7) 08/14/19 08:35 Absolute Monos (auto) 0.6 10^3/uL (0.1-1.4) 08/14/19 08:35 Absolute Eos (auto) 0.4 10^3/uL (0.0-0.6) 08/14/19 08:35 Absolute Basos (auto) 0.1 10^3/uL (0.0-0.2) 08/14/19 08:35 Seg Neutrophils % 61.3 % (42-78) 08/14/19 08:35 Sodium 137.1 mmol/L (137-145) 08/09/19 10:00 Potassium 3.5 mmol/L (3.6-5.0) L 08/09/19 10:00 Chloride 105 mmol/L (98-107) 08/09/19 10:00 Carbon Dioxide 24 mmol/L (22-30) 08/09/19 10:00 Anion Gap 8 (5-19) 08/09/19 10:00 BUN 16 mg/dL (7-20) 08/09/19 10:00 Creatinine 0.73 mg/dL (0.52-1.25) 08/09/19 10:00 Est GFR ( Amer) > 60 (>60) 08/09/19 10:00 Est GFR (Non-Af Amer) Cancelled 08/09/19 08:19 Est GFR (MDRD) Non-Af > 60 (>60) 08/09/19 10:00 Glucose 86 mg/dL (75-110) 08/09/19 10:00 Calcium 8.4 mg/dL (8.4-10.2) 08/09/19 10:00 Total Bilirubin 0.4 mg/dL (0.2-1.3) 08/08/19 22:11 Direct Bilirubin 0.3 mg/dL (0.0-0.4) 08/08/19 22:11 Neonat Total Bilirubin Not Reportable 08/08/19 22:11 Neonat Direct Bilirubin Not Reportable 08/08/19 22:11 Neonat Indirect Bili Not Reportable 08/08/19 22:11 AST 51 U/L (14-36) H 08/08/19 22:11 ALT 25 U/L (<35) 08/08/19 22:11 Alkaline Phosphatase 102 U/L (38-126) 08/08/19 22:11 Creatine Kinase 92 U/L (30-135) 08/12/19 06:45 CK-MB (CK-2) 2.27 ng/mL (<4.55) 08/12/19 06:45 Troponin I < 0.012 ng/mL 08/12/19 06:45 Total Protein 7.1 g/dL (6.3-8.2) 08/08/19 22:11 Albumin 3.4 g/dL (3.5-5.0) L 08/08/19 22:11 EGFR Cancelled 08/09/19 08:19 Urine Color YELLOW 08/14/19 02:50 Urine Appearance SLIGHTLY-CLOUDY 08/14/19 02:50 Urine pH 7.0 (5.0-9.0) 08/14/19 02:50 Ur Specific [place] 1.010 08/14/19 02:50 Urine Protein NEGATIVE mg/dL (NEGATIVE) 08/14/19 02:50 Urine Glucose (UA) NEGATIVE mg/dL (NEGATIVE) 08/14/19 02:50 Urine Ketones NEGATIVE mg/dL (NEGATIVE) 08/14/19 02:50 Urine Blood NEGATIVE (NEGATIVE) 08/14/19 02:50 Urine Nitrite POSITIVE (NEGATIVE) H 08/14/19 02:50 Urine Bilirubin NEGATIVE (NEGATIVE) 08/14/19 02:50 Urine Urobilinogen NEGATIVE mg/dL (<2.0) 08/14/19 02:50 Ur Leukocyte Esterase NEGATIVE (NEGATIVE) 08/14/19 02:50 Urine WBC (Auto) 1 /HPF 08/14/19 02:50 Urine RBC (Auto) 0 /HPF 08/14/19 02:50 Urine Bacteria (Auto) TRACE /HPF 08/14/19 02:50 Squamous Epi Cells Auto <1 /HPF 08/14/19 02:50 Urine Mucus (Auto) RARE /LPF 08/14/19 02:50 Urine Ascorbic Acid NEGATIVE (NEGATIVE) 08/14/19 02:50 Stool for White Cells NO WBCs SEEN 08/11/19 18:00 IgE 71 IU/mL (6-495) 08/11/19 13:46 08/11/19 08/11/19 08/12/19 13:46 21:05 06:45 CK-MB (CK-2) 3.40 2.45 2.27 Troponin I < 0.012 0.014 < 0.012 Impressions: Hand/Wrist X-Ray 08/11/19 00:00 IMPRESSION: Subacute impacted Colles' fracture of the right wrist. This is partly healed with dorsal angulation but no dorsal displacement. Deformity of the left wrist from remote Colles' fracture.. Fluoroscopy 08/14/19 00:00 IMPRESSION: Intra procedural imaging fluoro Wrist X-Ray 08/14/19 00:00 IMPRESSION: Intra procedural imaging fluoro Upper Extremity MRI 08/15/19 00:00 IMPRESSION: 1. Limitations due to motion artifact. Rim rent tear of the supraspinatus. No full-thickness tear. 2. AC and glenohumeral joint arthropathy.
[2019-08-16] MEDS: OXYCODONE HCL IR 5 MG TABLET PO PRN (03:24)
[2019-08-16] MEDS: ONDANSETRON HCL INJ/PF 4 MG/2 ML SDV IV PRN (03:24)
[2019-08-16] MEDS: ACETAMINOPHEN 325 MG TABLET PO SCH (05:45)
[2019-08-16 09:50] VITALS: BP 151/76
--- NOTE | 2019-08-16 19:51 | PDOC DISCHARGE SUMMARY ---
Impression - Admit/DC Date/PCP Admission Date/Primary Care Provider: 08/08/19 21:19 CHRISTY JONES MD Discharge Date: 08/16/19 - Discharge Diagnosis (1) Lower GI bleed Is this a current diagnosis for this admission?: Yes (2) Essential (primary) hypertension Is this a current diagnosis for this admission?: Yes (3) Anemia Is this a current diagnosis for this admission?: Yes (4) Chest pain Is this a current diagnosis for this admission?: Yes (5) Erythema Is this a current diagnosis for this admission?: Yes (6) Rectal prolapse Is this a current diagnosis for this admission?: Yes (7) Colles' fracture of left radius, initial encounter for closed fracture Is this a current diagnosis for this admission?: Yes (8) Colles' fracture of right radius, initial encounter for closed fracture Is this a current diagnosis for this admission?: Yes - Additional Information Resuscitation Status: Full Code Discharge Diet: Regular Discharge Activity: Activity As Tolerated Referrals: CHANELL CERRATO MD [ACTIVE STAFF] - (BX RESULTS 2 WKS. OFFICE WILL CALL PATIENT.) CHRISTY JONES MD [Primary Care Provider] - 08/23/19 10:15 am MAAME CODY JR, DO [ACTIVE PROVISIONAL STAFF] - (left a voicemail for them to call you with an appointment date and time. If you do not hear from them in the next couple of days, please give them a call at [phone].) Home Medications: RX: Dextroamphetamine/Amphetamine [Dextroamp-Amphetamin 30 mg Tab] 30 mg PO BID 08/09/19 RX: Escitalopram Oxalate [Lexapro] 20 mg PO DAILY 08/09/19 RX: Losartan/Hydrochlorothiazide [Losartan-Hctz 100-25 mg Tab] 1 each PO DAILY 08/09/19 RX: Omeprazole 20 mg PO DAILY 08/09/19 History of Present Illiness History of Present Illness: SUDHIR ROBERTSON is a 64 year old female patient is well-known to me she came to the office about 4 PM for evaluation of active GI bleed rectally, she has a history of gastric bypass with a history of anastomotic bleed, I saw her in the office about 2 months ago when she came for follow-up evaluation at that time I did routine blood work, she was found to have iron deficiency anemia, at the time the hemoglobin was 10, I referred her to see Dr. Hyman GI but for some reason she never kept the appointment. She came to the office late Thursday evening with active GI bleed in the setting of COVID 19 pandemic I decided to admit directly rather than going to the ER for evaluation to reduce the risk of exposure to COVID 19 she has other medical problems including hypertension history of atheroma embolic disease, osteoporosis. She has a fracture of the wrist from a fall she was supposed to see orthopedic she never did, the wrist looks deformed suggesting nonunion or malunion deformity. Hospital Course Hospital Course: Patient was admitted for the management of lower GI bleed, she was seen in consultation by GI Dr. Hyman she underwent colonoscopy and EGDThis demonstrated rectal prolapse, nonspecific colitis, gastritis. She also complained of chest pain she underwent nuclear medicine, Cardiolite Lexiscan stress test which was negative for reversible ischemia to suggest a blockage. She has bilateral Colles' fracture from fall of the wrist the right wrist was more deformed than the left wrist consultation was obtained from Dr. Cody, orthopedic she underwent open reduction internal fixation of the right wrist joint.Pain control was achieved with Dilaudid.She has osteoporosis outpatient bone density will be obtained Physical Exam Vital Signs: Temp Pulse Resp BP Pulse Ox 98.0 F 59 L 16 136/63 H 98 08/16/19 09:09 08/16/19 09:09 08/16/19 09:09 08/16/19 09:09 08/16/19 09:09 Intake & Output 08/15/19 08/16/19 08/17/19 06:59 06:59 06:59 Intake Total 4620 1460 Output Total 2150 1000 Balance 2470 460 Weight 51.2 kg 55.2 kg General appearance: PRESENT: no acute distress Eye exam: PRESENT: PERRLA Respiratory exam: PRESENT: clear to auscultation rai Cardiovascular exam: PRESENT: +S1, +S2 Neurological exam: PRESENT: alert, CN II-XII grossly intact Results Laboratory Results: WBC 6.7 10^3/uL (4.0-10.5) 08/14/19 08:35 RBC 3.94 10^6/uL (3.72-5.28) 08/14/19 08:35 Hgb 9.2 g/dL (12.0-15.5) L 08/14/19 08:35 Hct 28.6 % (36.0-47.0) L 08/14/19 08:35 MCV 73 fl (80-97) L 08/14/19 08:35 MCH 23.5 pg (27.0-33.4) L 08/14/19 08:35 MCHC 32.3 g/dL (32.0-36.0) 08/14/19 08:35 RDW 17.8 % (11.5-14.0) H 08/14/19 08:35 Plt Count 423 10^3/uL (150-450) 08/14/19 08:35 Lymph % (Auto) 21.1 % (13-45) 08/14/19 08:35 [place] % (Auto) 9.5 % (3-13) 08/14/19 08:35 Eos % (Auto) 6.5 % (0-6) H 08/14/19 08:35 Baso % (Auto) 1.6 % (0-2) 08/14/19 08:35 Absolute Neuts (auto) 4.1 10^3/uL (1.7-8.2) 08/14/19 08:35 Absolute Lymphs (auto) 1.4 10^3/uL (0.5-4.7) 08/14/19 08:35 Absolute Monos (auto) 0.6 10^3/uL (0.1-1.4) 08/14/19 08:35 Absolute Eos (auto) 0.4 10^3/uL (0.0-0.6) 08/14/19 08:35 Absolute Basos (auto) 0.1 10^3/uL (0.0-0.2) 08/14/19 08:35 Seg Neutrophils % 61.3 % (42-78) 08/14/19 08:35 Sodium 137.1 mmol/L (137-145) 08/09/19 10:00 Potassium 3.5 mmol/L (3.6-5.0) L 08/09/19 10:00 Chloride 105 mmol/L (98-107) 08/09/19 10:00 Carbon Dioxide 24 mmol/L (22-30) 08/09/19 10:00 Anion Gap 8 (5-19) 08/09/19 10:00 BUN 16 mg/dL (7-20) 08/09/19 10:00 Creatinine 0.73 mg/dL (0.52-1.25) 08/09/19 10:00 Est GFR ( Amer) > 60 (>60) 08/09/19 10:00 Est GFR (Non-Af Amer) Cancelled 08/09/19 08:19 Est GFR (MDRD) Non-Af > 60 (>60) 08/09/19 10:00 Glucose 86 mg/dL (75-110) 08/09/19 10:00 Calcium 8.4 mg/dL (8.4-10.2) 08/09/19 10:00 Total Bilirubin 0.4 mg/dL (0.2-1.3) 08/08/19 22:11 Direct Bilirubin 0.3 mg/dL (0.0-0.4) 08/08/19 22:11 Neonat Total Bilirubin Not Reportable 08/08/19 22:11 Neonat Direct Bilirubin Not Reportable 08/08/19 22:11 Neonat Indirect Bili Not Reportable 08/08/19 22:11 AST 51 U/L (14-36) H 08/08/19 22:11 ALT 25 U/L (<35) 08/08/19 22:11 Alkaline Phosphatase 102 U/L (38-126) 08/08/19 22:11 Creatine Kinase 92 U/L (30-135) 08/12/19 06:45 CK-MB (CK-2) 2.27 ng/mL (<4.55) 08/12/19 06:45 Troponin I < 0.012 ng/mL 08/12/19 06:45 Total Protein 7.1 g/dL (6.3-8.2) 08/08/19 22:11 Albumin 3.4 g/dL (3.5-5.0) L 08/08/19 22:11 EGFR Cancelled 08/09/19 08:19 Urine Color YELLOW 08/14/19 02:50 Urine Appearance SLIGHTLY-CLOUDY 08/14/19 02:50 Urine pH 7.0 (5.0-9.0) 08/14/19 02:50 Ur Specific [place] 1.010 08/14/19 02:50 Urine Protein NEGATIVE mg/dL (NEGATIVE) 08/14/19 02:50 Urine Glucose (UA) NEGATIVE mg/dL (NEGATIVE) 08/14/19 02:50 Urine Ketones NEGATIVE mg/dL (NEGATIVE) 08/14/19 02:50 Urine Blood NEGATIVE (NEGATIVE) 08/14/19 02:50 Urine Nitrite POSITIVE (NEGATIVE) H 08/14/19 02:50 Urine Bilirubin NEGATIVE (NEGATIVE) 08/14/19 02:50 Urine Urobilinogen NEGATIVE mg/dL (<2.0) 08/14/19 02:50 Ur Leukocyte Esterase NEGATIVE (NEGATIVE) 08/14/19 02:50 Urine WBC (Auto) 1 /HPF 08/14/19 02:50 Urine RBC (Auto) 0 /HPF 08/14/19 02:50 Urine Bacteria (Auto) TRACE /HPF 08/14/19 02:50 Squamous Epi Cells Auto <1 /HPF 08/14/19 02:50 Urine Mucus (Auto) RARE /LPF 08/14/19 02:50 Urine Ascorbic Acid NEGATIVE (NEGATIVE) 08/14/19 02:50 Stool for White Cells NO WBCs SEEN 08/11/19 18:00 IgE 71 IU/mL (6-495) 08/11/19 13:46 08/11/19 08/11/19 08/12/19 13:46 21:05 06:45 CK-MB (CK-2) 3.40 2.45 2.27 Troponin I < 0.012 0.014 < 0.012 Impressions: Hand/Wrist X-Ray 08/11/19 00:00 IMPRESSION: Subacute impacted Colles' fracture of the right wrist. This is partly healed with dorsal angulation but no dorsal displacement. Deformity of the left wrist from remote Colles' fracture.. Fluoroscopy 08/14/19 00:00 IMPRESSION: Intra procedural imaging fluoro Wrist X-Ray 08/14/19 00:00 IMPRESSION: Intra procedural imaging fluoro Upper Extremity MRI 08/15/19 00:00 IMPRESSION: 1. Limitations due to motion artifact. Rim rent tear of the supraspinatus. No full-thickness tear. 2. AC and glenohumeral joint arthropathy. Stroke Is this a Stroke Patient?: No Acute Heart Failure - Is this a Heart Failure Patient?: No
== END 2019-08-16 11:49 | disposition home or self-care (01) | DRG 981 ==
LOC: 4W 21:19 → 4S 08-12 18:20
PROVIDERS: ADMIT Internal Medicine; ATTEND Internal Medicine
PROC: 3E02340 Introduction of Influenza Vaccine into Muscle, Percutaneous Approach (ICD-10-PCS; 2019-08-10)
PROC: 0DBF8ZX Excision of Right Large Intestine, Via Natural or Artificial Opening Endoscopic, Diagnostic (ICD-10-PCS; 2019-08-10)
PROC: 0DB78ZX Excision of Stomach, Pylorus, Via Natural or Artificial Opening Endoscopic, Diagnostic (ICD-10-PCS; 2019-08-10 11:30)
PROC: 0PSH04Z Reposition Right Radius with Internal Fixation Device, Open Approach (ICD-10-PCS; principal; 2019-08-14 10:30)
DX: K62.5 Hemorrhage of anus and rectum (principal); K55.059 Acute (reversible) ischemia of intestine, part and extent unspecified; S52.532A Colles' fracture of left radius, initial encounter for closed fracture; S52.531P Colles' fracture of right radius, subsequent encounter for closed fracture with malunion; K28.4 Chronic or unspecified gastrojejunal ulcer with hemorrhage; K52.9 Noninfective gastroenteritis and colitis, unspecified; I10 Essential (primary) hypertension; D64.9 Anemia, unspecified; L53.9 Erythematous condition, unspecified; K62.3 Rectal prolapse; E78.5 Hyperlipidemia, unspecified; K21.9 Gastro-esophageal reflux disease without esophagitis; F32.9 Major depressive disorder, single episode, unspecified; W19.XXXA Unspecified fall, initial encounter; K20.8 Other esophagitis; K22.8 Other specified diseases of esophagus; D50.0 Iron deficiency anemia secondary to blood loss (chronic); I25.2 Old myocardial infarction; Z23 Encounter for immunization; Z91.19 Patient's noncompliance with other medical treatment and regimen; Z90.10 Acquired absence of unspecified breast and nipple
CPT/HCPCS: 00813; 01830; 36415; 43239; 45380; 78452; 80048; 80076; 81001; 82550; 82553; 82785; 84484; 85025; 85027; 87045; 87086; 87088; 87177; 87186; 87205; 88305; 88312; 89055; 93005; 93010; 93017; A9500; C1713; J0690; J1100; J1170; J1200; J1439; J1885; J2250; J2405; J2704; J2785; J2795; J3010; J3480; J3490; J7030; J7050; J7060; L3908; Q9969

== ENCOUNTER 2019-11-19 22:59 | Emergency (ER) | payer BC, MEDICARE ==
[2019-11-20 02:17] LABS: ALBUMIN 3.5 g/dL (3.5-5.0); ALKALINE PHOSPHATASE 91 U/L (38-126); ANION GAP 9 (5-19); ASPARTATE AMINO TRANSFERASE 36 U/L (14-36); BILIRUBIN,TOTAL 0.5 mg/dL (0.2-1.3); BLOOD UREA NITROGEN 18 mg/dL (7-20); CALCIUM 8.7 mg/dL (8.4-10.2); CARBON DIOXIDE 25 mmol/L (22-30); CHLORIDE 103 mmol/L (98-107); GLUCOSE 102 mg/dL (75-110); TOTAL PROTEIN 6.7 g/dL (6.3-8.2)
[2019-11-20 02:20] LABS: ABSOLUTE EOSINOPHILS # (AUTO) 0.3 10^3/uL (0.0-0.6); ABSOLUTE LYMPHOCYTES (AUTO) 1.2 10^3/uL (0.5-4.7); ABSOLUTE MONOCYTES (AUTO) 1.1 10^3/uL (0.1-1.4); ABSOLUTE NEUT (AUTO) 8.9 10^3/uL (1.7-8.2); BASOPHILS % (AUTO) 0.3 % (0-2); EOSINOPHILS % (AUTO) 2.6 % (0-6); HEMATOCRIT 35.6 % (36.0-47.0); HEMOGLOBIN 11.7 g/dL (12.0-15.5); LYMPHOCYTES % (AUTO) 10.4 % (13-45); MEAN CORPUSCULAR VOLUME 82 fl (80-97); MONOCYTES % (AUTO) 9.3 % (3-13); PLATELET COUNT 273 10^3/uL (150-450); RED BLOOD COUNT 4.35 10^6/uL (3.72-5.28); SEGMENTED NEUTROPHILS % (AUTO) 77.4 % (42-78); TOTAL CELLS COUNTED % (AUTO) 100 %; WHITE BLOOD COUNT 11.5 10^3/uL (4.0-10.5)
[2019-11-20 02:23] LABS: POTASSIUM 2.8 mmol/L (3.6-5.0)
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
[2019-11-20 02:54] LABS: ANISOCYTOSIS SLIGHT; OVALOCYTES SLIGHT; PLATELET COMMENT ADEQUATE
[2019-11-20] MEDS: POTASSI CL 20 MEQ/50 ML RIDER 20 MEQ/50 ML RTUPB IV SCH ×2 (03:04→05:03)
[2019-11-20 03:34] LABS: APPEARANCE,URINE CLEAR; BILIRUBIN,URINE NEGATIVE (NEGATIVE); COLOR,URINE YELLOW; GLUCOSE, URINE NEGATIVE (NEGATIVE); KETONES,URINE NEGATIVE (NEGATIVE); LEUKOCYTE ESTERASE,URINE NEGATIVE (NEGATIVE); NITRITE,URINE NEGATIVE (NEGATIVE); PROTEIN,URINE NEGATIVE (NEGATIVE); URINE SPECIFIC GRAVITY 1.015
[2019-11-20 03:59] LABS: URINE BARBITURATES SCREEN NEGATIVE; URINE BENZODIAZEPINES SCREEN NEGATIVE; URINE COCAINE SCREEN NEGATIVE; URINE MARIJUANA (THC) SCREEN NEGATIVE; URINE METHADONE SCREEN NEGATIVE; URINE PHENCYCLIDINE SCREEN NEGATIVE
[2019-11-20 04:16] LABS: URINE AMPHETAMINES SCREEN UNCONFIRMED POSITIVE
[2019-11-20] MEDS ORDERED: POTASSIUM CHLORIDE 10 MEQ TABLET.ER PO ONE (04:35)
--- NOTE | 2019-11-20 05:46 | RADIOLOGY REPORT (SQ) ---
Left forearm two view on 11/20/2019 at 4:58 AM CLINICAL INDICATION: Left forearm pain and swelling COMPARISON: 10/20/2016 FINDINGS: There is diffuse osteopenia. There is an old healed distal radius metaphysis fracture. No acute fracture is noted. Visualized joints are well aligned. No joint effusion to suggest an occult fracture is noted in the elbow. IMPRESSION: No acute abnormality.
--- NOTE | 2019-11-20 05:49 | RADIOLOGY REPORT (SQ) ---
Left shoulder three view on 11/20/2019 at 4:53 AM CLINICAL INDICATION: Left shoulder pain and swelling COMPARISON: 03/23/2019 FINDINGS: Fusion hardware is partially imaged in the lower cervical spine. There is levoscoliosis of the upper thoracic spine. The AC joint is well aligned. Mild degenerative changes are noted in the AC joint. The glenohumeral joint is well located. There are no fractures. No other bony abnormality is noted. IMPRESSION: No acute abnormality.
[2019-11-20] MEDS ORDERED: IBUPROFEN 600 MG TABLET PO ONE (06:11)
[2019-11-20] MEDS ORDERED: CEPHALEXIN 500 MG CAPSULE PO ONE (11:09)
--- NOTE | 2019-11-20 12:05 | RADIOLOGY REPORT (SQ) ---
EXAM DESCRIPTION: VENOUS UNILATERAL UPPER IMAGES COMPLETED DATE/TIME: 11/20/2019 11:47 am REASON FOR STUDY: LUE erythema/swelling COMPARISON: Left forearm two views 11/20/2019 TECHNIQUE: Dynamic and static dempsey scale and color images acquired of the left arm venous system. Se lected spectral images acquired with additional compression and augmentation maneuvers. The contralat eral subclavian vein and internal jugular vein were also imaged. Images stored on PACS. LIMITATIONS: None. FINDINGS: LEFT INTERNAL JUGULAR VEIN: Normal phasicity, compression, augmentation. No visualized echogenic material on dempsey scale. No defects on color images. Comparison opposite side normal. SUBCLAVIAN VEIN: Normal compression, augmentation. No visualized echogenic material on dempsey scale. No defects on color images. AXILLARY VEIN: Normal compression, augmentation. No visualized echogenic material on dempsey scale. No d efects on color images. BRACHIAL VEIN: Normal compression, augmentation. No visualized echogenic material on dempsey scale. No d efects on color images. BASILIC VEIN: Normal compression, augmentation. No visualized echogenic material on dempsey scale. No de fects on color images. CEPHALIC VEIN: Normal compression, augmentation. No visualized echogenic material on dempsey scale. No d efects on color images. OTHER: No other significant finding. LEFT SUBCLAVIAN VEIN AND INTERNAL JUGULAR VEIN: Normal phasicity, compression and augmentation. No visualized echogenic material on dempsey scale. No de fects on color images. IMPRESSION: NO EVIDENCE DVT OR SVT RIGHT ARM. TECHNICAL DOCUMENTATION: JOB ID: [id number] [employer]- All Rights Reserved Reading location - IP/workstation name: [email or web address]
[2019-11-20 12:25] VITALS: BP 128/78
== END 2019-11-20 12:32 | disposition home or self-care (01) ==
LOC: ER 22:59
DX: L03.114 Cellulitis of left upper limb (principal); E87.6 Hypokalemia; M79.602 Pain in left arm; K92.1 Melena; E78.00 Pure hypercholesterolemia, unspecified; I10 Essential (primary) hypertension; Z86.73 Personal history of transient ischemic attack (TIA), and cerebral infarction without residual deficits; Z98.84 Bariatric surgery status; I25.2 Old myocardial infarction
CPT/HCPCS: 99284; 96365; 96366; 36415; 80307 ×2; 83735; 85025; 82270; 80053; 81001; 93971; 73090; 73030; J3480